=== PATIENT | male | born 1965 | race Caucasian/White ===

== ENCOUNTER → 2023-07-05 11:21 | Outpatient (REF) | payer OTHER, SELFPAY | LOC: HWRAD 11:21 | PROVIDERS: ATTENDING PHYSICIAN Nurse Practitioner Primary Care; FAMILY PHYSICIAN Family Medicine | DX: C19 Malignant neoplasm of rectosigmoid junction (principal); C64.2 Malignant neoplasm of left kidney, except renal pelvis; C78.7 Secondary malignant neoplasm of liver and intrahepatic bile duct | CPT/HCPCS: 71260; 74177; Q9967 ==

== ENCOUNTER → 2023-07-19 12:53 | Outpatient (REF) | payer OTHER, SELFPAY | LOC: HWLAB 12:53 | PROVIDERS: ATTENDING PHYSICIAN Physical Medicine & Rehabilitation Pain Medicine; FAMILY PHYSICIAN Family Medicine; REFERRING PHYSICIAN Surgery | DX: M54.16 Radiculopathy, lumbar region (principal) | CPT/HCPCS: 72110 ==

== ENCOUNTER → 2023-07-21 06:28 | Day surgery (SDC) | payer OTHER, SELFPAY | LOC: GI 06:28 | PROVIDERS: ATTENDING PHYSICIAN Surgery | DX: R10.2 Pelvic and perineal pain (principal); K31.89 Other diseases of stomach and duodenum; Z85.048 Personal history of other malignant neoplasm of rectum, rectosigmoid junction, and anus; K63.89 Other specified diseases of intestine; K57.30 Diverticulosis of large intestine without perforation or abscess without bleeding | CPT/HCPCS: 45330 ==

== ENCOUNTER 2023-07-21 11:51 | Inpatient (IN) | payer OTHER, SELFPAY ==
[2023-07-21] VITALS (10 sets, daily range): BP systolic 129–155; BP diastolic 70–94; BMI 36.3; BMI 35.5
[2023-07-21] MEDS: DILAUDID 1 MG IV ×6 (10:25→22:32)
--- NOTE | 2023-07-21 10:25 | ED.GENMED ---
History of Present Illness
General
Chief Complaint: Abdominal Pain
Source: patient, records, spouse and physician (Colorectal surgery)
Exam Limitations: none
Time Seen by Provider: 07/21/23 10:09
Nursing documentation reviewed up to this point in time: agreed with
Travel History
Have you had any contact with someone who has COVID-19?: No
Do you have any symptoms of coronavirus? Fever > 100 degrees, chills, cough, shortness of breath, sore throat, loss of taste or smell, muscle aches, or headache?: No
History of Present Illness
History of Present Illness:
58-year-old male with past medical history as documented notable for rectal cancer status post resection about 4 years ago on chronic chemotherapy for metastatic disease who presents to the emergency room sent over from [facility] for severe rectal
pain and anastomotic leak. Colorectal surgery called ahead patient was seen in the office and sent over; apparently has had a chronic pelvic anastomotic leak but had been asymptomatic until recently, was having worsening pain and was seen in the
office and had a flexible sigmoidoscopy that showed significant increase in anastomotic leak. Was sent over for admission. Patient says that he has had some gradually increasing pain for the past 3 weeks�initially he was having pain in the right
buttock that was rating down the leg and thought that perhaps it could be from sciatica. Over the past 5 days he says that he has had increasing pain particular in the rectum and groin region which prompted visit to surgeon today and ultimately
referral to the ER. He has been having bowel movements last bowel movement was earlier today and loose. He denies any nausea or vomiting. No fever or chills. Last meal was 8 PM.
Past History
Past History
ED Past Medical History: Cancer
ED Past Surgical History: Bowel resection and Urological
Social History
Tobacco: Non-smoker
Alcohol: Occasional
Personal:
Living: with family
Employment: Employed
Review of Systems
Review of Systems
All Other Systems: ROS reviewed and negative except as documented in HPI and ROS
Constitutional: Denies fever or chills
EENT: Denies sore throat or runny nose
Respiratory: Denies cough or trouble breathing
Cardiac: Denies chest pain or palpitations
ABD/GI: Reports abdominal pain; Denies nausea, vomiting, diarrhea or constipated
: Denies flank pain
Musculoskeletal: Denies neck pain or back pain
Neurological: Denies headache, weakness or numbness
Phy Exam
Physical Exam
Physical Exam:
General: Awake, alert, oriented x3; lying in bed appears very uncomfortable
Head: Normocephalic, atraumatic
Eyes: Conjunctiva normal, sclera anicteric
Throat: Airway intact, handling secretions
Neck: Trachea midline, supple without meningismus
Lungs: Clear to auscultation bilaterally, no wheezing, rales, rhonchi
Heart: Regular rate and rhythm, no murmurs, gallops, or rubs
Abd: Soft, non distended, markedly tender to palpation across the lower abdomen somewhat worse right versus left
Neuro: Cranial nerves grossly intact, speech fluid
Skin: no rash
Extremities: No edema in extremities, equal pulses in all extremities
Scores
Heart Failure Risk
Heart Failure Risk Score: Not Applicable
Heart Score for Chest Pain Patients
STEMI patient?: Not applicable
Withdrawal Assessment of Alcohol
Withdrawal Assessment Completed?: Not applicable
Course
Orders/Labs/Results
Orders:
Orders
07/21/23 10:11
HYDROmorphone [Dilaudid] 1 mg IV NOW STA
Piperacillin/Tazo 3.375 Gram [Zosyn] 3.375 gram in 50 ml IV NOW
07/21/23 10:12
ColoRectal Surgery Consult Urgent
Consulting Provider: Billy Rivera
Was physician already notified: Yes
07/21/23 10:17
Ondansetron Injectable [Zofran] 4 mg IV NOW STA
07/21/23 10:23
Admit/Transfer Patient As Directed
Co-Sign Provider:
Level of Care: Inpatient admission
Assign to:: Medical/Surgical
Physician / Group: Billy Rivera
Diagnosis: anastamotic blowout
Reason for Hospitalization: surgery
Expected length of stay greater than two midnights?: Yes
ELOS- Estimated Length of Stay in days: 7
I certify the patient meets the requirements for IP care: Yes
07/21/23 10:27
Type+Screen Urgent
Complete Blood Count/With Diff Urgent
Lactate Level [Lactic Acid] Urgent
07/21/23 10:28
Comprehensive Metabolic Panel Urgent
PTT Urgent
Prothrombin Time Urgent
Blood Culture Q30M
JOSE FRANCISCO Source: Blood/Venous
Specimen Description:
07/21/23 10:37
Blood Culture Q30M
JOSE FRANCISCO Source: Blood/Venous
Specimen Description:
07/21/23 11:05
HYDROmorphone [Dilaudid] 1 mg IV NOW STA
Abnormal Lab Results
07/21/23 07/21/23
10:27 10:28
WBC 14.9 H 10^3/uL
(4.8-10.8)
RBC 4.55 L 10^6/uL
(4.70-6.10)
RDW 15.6 H %
(11.5-14.5)
Abs Immat Gran (auto) 0.1 H 10^3/uL
(0-0.05)
Absolute Neuts (auto) 12.7 H 10^3/uL
(1.4-6.5)
Absolute Lymphs (auto) 1.1 L 10^3/uL
(1.2-3.4)
Absolute Monos (auto) 1.0 H 10^3/uL
(0.1-0.6)
Neutrophils % 85.0 H %
(42.2-75.2)
Lymphocytes % 7.1 L %
(20.5-51.1)
APTT 37.1 H Sec
(23.4-35.0)
Chloride 97 L mmol/L
(98-107)
BUN 6 L mg/dl
(9-20)
Creatinine 0.5 L mg/dL
(0.7-1.3)
Glucose 132 H mg/dl
(70-99)
Alkaline Phosphatase 166 H U/L
(38-126)
07/21/23 10:27
07/21/23 10:28
Vital Signs
Initial and Last Documented VS:
Initial Vital Signs
Temp Pulse Resp BP Pulse Ox
36.7 C 105 26 135/94 98
07/21/23 09:57 07/21/23 09:57 07/21/23 09:57 07/21/23 09:57 07/21/23 09:57
Last Documented Vital Signs
Temp Pulse Resp BP Pulse Ox
36.7 C 105 26 135/94 98
07/21/23 09:57 07/21/23 09:57 07/21/23 09:57 07/21/23 09:57 07/21/23 09:57
MDM/Problems Addressed
Differential Diagnosis Includes:
Anastomotic leak
MDM/Problems Addressed:
58-year-old male sent over to the ER for admission by colorectal surgery with severe pain from anastomotic leak as above. He arrives to us tachycardic and mildly tachypneic but normotensive, afebrile. Exam as above. IV placed labs sent off
including CBC and CMP, coags, type and screen. Will send lactate and blood cultures. Will cover with IV Zosyn. Will treat pain with Dilaudid. Discussed with colorectal surgery and they will place admission orders for further care and operative
planning.
Labs reviewed: CBC shows leukocytosis to 14.9, CMP no clinically significant abnormalities. Patient still having pain after initial Dilaudid dose we will repeat a dose. Admission orders placed by colorectal.
*Pulse Oximetry
Patient hypoxic: no
*Critical Care Note
Total Time (30-74mins, 75-104mins- exclusive of procedures): Not Applicable
Data Reviewed
Review of Other/Old Records Reveals: Labs and Records
Source: patient, spouse and physician
Patient Management
Discussion with other providers: Truss Builder (Discussed with colorectal surgery)
Escalation/DeEscalation of care consider admission/obs:
Admission indicated
ED Attending Note
-
Portions of this chart may have been created with voice recognition software.� Occasional wrong word or��sound alike� substitutions may have occurred due to the inherent limitations of voice recognition software.
Discharge Plan
Departure
Patient Disposition: Admit
Date of Disposition: 07/21/23
Time of Disposition: 10:13
Admit to doctor: Nicole
Presentation/result/management discussed w/ accepting MD/DO: colorectal surgery
Discharge Problem:
Anastomotic leak of intestine
Prescriptions:
No Action
metoprolol succinate 50 MG tablet extended release 24 hr
50 mg PO DAILY
oxycodone-acetaminophen [Percocet] 5-325 mg tablet
1 tab PO Q6H PRN (Reason: severe pain) Qty: 7 0RF
Patient Comments:
07/21/2023, pt. filled this med. on 07/19/2023 for 28 tablets per PDMP.
Theragen Tablet
1 tab PO DAILY
naproxen sodium [Aleve] 220 mg Tablet
440 mg PO TIDPRN PRN (Reason: mild pain)
ibuprofen [Motrin IB] 200 mg Tablet
400 mg PO TIDPRN PRN (Reason: mild pain)
[2023-07-21] MEDS: ZOFRAN 4 MG IV (10:30)
[2023-07-21 10:41] LABS: % Basophils 0.5 % (0-2); % Eosinophils 0.1 % (0-6); % Immature Granulocytes 0.5 % (0-0.5); % Lymphocytes 7.1 % (20.5-51.1); % Monocytes 6.8 % (1.7-9.3); Absolute Basophils 0.1 10^3/uL (0-0.2); Absolute Immature Granulocytes 0.1 10^3/uL (0-0.05); Absolute Lymphocytes 1.1 10^3/uL (1.2-3.4); Absolute Neutrophils 12.7 10^3/uL (1.4-6.5); Hematocrit 39.3 % (39.0-52.0); Hemoglobin 13.7 g/dL (13.0-18.0); Mean Corp Hgb Conc. 34.9 g/dL (33.0-37.0); Mean Corpuscular Hgb 30.1 pg (27.0-31.0); Mean Corpuscular Volume 86.4 fL (80.0-94.0); Mean Platelet Volume 8.2 fL (7.4-10.4); Nucleated Red Blood Cells % 0 % (-); Platelet Count 224 10^3/uL (130-400); Red Blood Cell Count 4.55 10^6/uL (4.70-6.10); Red Cell Dist. Width 15.6 % (11.5-14.5); White Blood Cell Count 14.9 10^3/uL (4.8-10.8)
[2023-07-21] MEDS: ZOSYN 50 IV ×3 (10:41→22:33)
--- NOTE | 2023-07-21 10:53 | CON.HOSP ---
Addendum entered and electronically signed by Yadira Ferrell MD 07/21/23 12:27:
of note, pt was started with ertapenem by primary service CRS.
cont abx for now
Original Note:
Family Physician
-
Family Physician:
Chief Complaint
-
rectal pain
History of Present Illness
58-year-old male with past medical history Metastatic rectal cancer s/p resection on chronic chemotherapy (outpt oncologist Dr Mcmahan), with chronic stable pelvic anastomotic leak (had been asymptomatic) , Liver mass (secondary to metastatic disease)
s/p resection, Left renal mass status post robotic left partial nephrectomy, who was sent from the CRS office for RLQ abd pain, rectal pain and worsening anastomotic leak.�
He has a chronic pelvic anastomotic leak and has been asymptomatic until recently. 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 The pain is now around the rectum and groin.
He had a flexible sigmoidoscopy in the office that showed significant increase in anastomotic leak.�
He has been having bowel movements, last bowel movement was earlier on DOA.� He denies any nausea or vomiting.� No fever or chills.�
Medical History
Past Medical History
Past Medical History: Reports Other
Additional Past Medical History:
Metastatic rectal cancer s/p resection on chronic chemotherapy (outpt oncologist Dr Mcmahan), with chronic stable pelvic anastomotic leak (had been asymptomatic)
Liver mass (secondary to metastatic disease) s/p resection
Left renal mass status post robotic left partial nephrectomy
Past Surgical History: Reports Other
Additional Past Surgical History:
see Above
Social History
Tobacco: Non-smoker
Alcohol: Occasional
Personal:
Living: With Family
Family History
Family History: Reviewed & Not Pertinent
Allergies / Home Medications
Allergies reflects when Allergies were last updated in [employer].
Home Medications with original date entered in [employer]
Allergy/Medication List:
Allergies
Allergy/AdvReac Type Severity Reaction Status Date / Time
acetaminophen [From Tylenol] Allergy Rash Verified 07/21/23 10:05
aspirin Allergy fever, Verified 07/21/23 10:05
hallucinations
- as a
child
Home Medications
metoprolol succinate 50 mg tablet,extended release 24 hr 50 mg PO DAILY Heart disease/condition 01/21/21
oxycodone-acetaminophen 5 mg-325 mg tablet (Percocet) 1 tab PO Q6H PRN severe pain #7 tabs 07/17/23
ibuprofen 200 mg tablet (Motrin IB) 400 mg PO TIDPRN PRN mild pain 07/21/23
naproxen sodium 220 mg tablet (Aleve) 440 mg PO TIDPRN PRN mild pain 07/21/23
therapeutic multivitamin 1 tab PO DAILY Supplement 07/21/23
Review of Systems
-
Abdomen/GI: Reports See HPI and Abdominal Pain
Physical Exam
Vital Signs
Vital Signs
Temp Pulse Resp BP Pulse Ox
36.7 C 105 26 135/94 98
07/21/23 09:57 07/21/23 09:57 07/21/23 09:57 07/21/23 09:57 07/21/23 09:57
Physical Exam
General: Well Developed, Well Nourished, No Apparent Distress and Comfortable
HEENT: Normocephalic, Moist Mucous Membranes and Atraumatic
Respiratory: Clear and Non Labored Respirations; Negative Accessory Resp Muscle Use
Cardiac: S1/S2 and Regular Rhythm; Negative Murmur or Rub
GI: Soft, Non Distended and Normal Bowel Sounds
Rectal: Deferred by Provider
Musculoskeletal: No Clubbing, No Cyanosis and No Edema
Skin: Negative Rash
Neuro: Awake
Psych: Calm and Intact Judgement
Laboratory Results
-
Laboratory Results
07/21/23 10:27
Data Reviewed
-
Lab Data: Labs Reviewed
Impression / Plan
-
58-year-old male with past medical history Metastatic rectal cancer s/p resection on chronic chemotherapy (outpt oncologist Dr Mcmahan), with chronic stable pelvic anastomotic leak (had been asymptomatic) , Liver mass (secondary to metastatic disease)
s/p resection, Left renal mass status post robotic left partial nephrectomy, who was sent from the CRS office for RLQ abd pain, rectal pain and worsening anastomotic leak.�
He has a chronic pelvic anastomotic leak and has been asymptomatic until recently. 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 The pain is now around the rectum and groin.
He had a flexible sigmoidoscopy in the office that showed significant increase in anastomotic leak.�
He has been having bowel movements, last bowel movement was earlier on DOA.� He denies any nausea or vomiting.� No fever or chills.�
A/P:
# Worsening pelvic anastomotic leak, associated with severe pain
# Metastatic rectal cancer s/p resection on chronic chemotherapy
# Left renal mass status post robotic left partial nephrectomy
# Liver mass (secondary to metastatic disease) s/p resection
CRS to determine surgical plan for pt's anastomotic leak
# Mild leucocytosis could be reactive
Pt afebrile
cont to monitor
DVT ppx: Lovenox SQ
FC
�� � � � � � � � � � � � � � � � � � � � � � � � � � � � � � � � � � � � � � �
[2023-07-21 10:57] LABS: INR 1.14; PT 14.6 Sec (11.4-14.6)
[2023-07-21 10:58] LABS: APTT 37.1 Sec (23.4-35.0)
[2023-07-21 11:02] LABS: ALT (SGPT) 20 U/L (0-50); AST (SGOT) 29 U/L (17-59); Albumin 3.6 g/dl (3.5-5.0); Alkaline Phosphatase 166 U/L (38-126); Blood Urea Nitrogen 6 mg/dl (9-20); Calcium 9.2 mg/dl (8.4-10.2); Carbon Dioxide 28 mmol/L (22-30); Chloride 97 mmol/L (98-107); Glucose 132 mg/dl (70-99); Potassium 3.8 mmol/L (3.5-5.1); Sodium 135 mmol/L (135-145); Total Bilirubin 0.7 mg/dl (0.2-1.3); eGFR > 60.00
--- NOTE | 2023-07-21 11:42 | HPS.HSE ---
Addendum entered and electronically signed by Billy Rivera MD 07/21/23 15:49:
I saw and examined the patient.
The PA's note was reviewed and I agree with the note.
Comment:
Patient seen with PA recently.
History, vitals, labs, recent imaging reviewed. Patient seen and examined.
58-year-old male with a history of low-lying rectal cancer that was treated via neoadjuvant chemoradiation and low anterior resection with loop ileostomy about 4 years ago. The loop was later reversed. He later developed metastatic disease in
particular to the liver and underwent partial hepatectomy. Also has a history of renal cell carcinoma and underwent a left nephrectomy in the past. He has been on chemotherapy for the better part of 4 years for stage IV colon cancer. Recent CEAs
have been much improved. He also has a known contained anastomotic leak in his pelvis which was first described radiographically maybe 2 years ago. It has seemed stable on imaging, the most recent CT being towards the end of last month. However,
a few weeks back he started having pelvic/right buttock pain intermittently rating to his right knee which is worsened and is becoming somewhat debilitating. Denies fevers, chills, nausea, or vomiting. Denies changes in bowel habits although his
bowels typically are quite erratic. When I saw him in the office recently I recommended evaluation by the back specialist. He did see a local group and plain films of his lower back apparently showed degenerative changes. I also recommended a
flexible sigmoidoscopy by me to better evaluate the anastomosis. Today I performed flexible sigmoidoscopy and the before the procedure he was noted to be in excruciating pain. Is also been on antibiotics under Dr. Chatterjee his medical oncologist for
the presumed contained leak. On flexible sigmoidoscopy a sizable anastomotic defect was noted posteriorly with visualization of what I think is the tissue overlying the sacrum. On VICKY under anesthesia I could palpate the sacral bone. Of note his
last endoscopic evaluation of the anastomosis in [address] Blair showed an intact anastomosis. The patient was writhing in pain postprocedure today and (as before). Based on the flexible sigmoidoscopy and his history I believe his contained
perforation is worsening and is the source of his severe pain. Options were discussed with the patient and I recommended admission via the ER and likely OR tomorrow to address the leak. I anticipate an open APR versus redo LAR with coloanal and
possible diverting loop ileostomy. Risks and benefits of such operation were discussed in detail. Risk described included but not limited to bleeding, infection, changes of bowel control/fecal incontinence, stricture formation, hernia formation,
nerve injury, ureteral injury, bowel or solid organ injury, progression of his cancer due to having to be off chemo, potential for ongoing pain despite my efforts, and anesthetic risk. I emphasized to the patient that there is a good chance that he
wakes up with a permanent stoma. The patient understands and agrees to proceed. All questions answered. In the meantime we will proceed with bowel prep and IV antibiotics and obtain clearance by the hospitalist service.
Original Note:
Family Physician
-
Family Physician: Nicole Liriano
Chief Complaint
-
sacral pain
History of Present Illness
58 yo male with a history of rectal cancer s/p resection by Dr. Rivera after chemoradiation. He later had a partial hepatectomy for metastatic disease. He has essentially been on chronic chemotherapy for metastatic disease. He also has a known
chronic pelvic anastomotic leak which has essentially been asymptomatic. However recently his oncologist, Dr. Chatterjee, relayed to me that he has been having acute pain of the pelvic/buttock area for which Dr. Chatterjee placed him on a course of Levaquin
and probiotic for 10 days which the patient is currently on. Dr. Chatterjee asked me to see him for further recommendations. Patient himself admits that the pain is mainly a right buttock pain which also intermittently radiates to the right knee. It
started on 06/30/2023. He also has intermittent diarrhea which is an issue that may or may not be related to the chemotherapy which he is on.
�������Of note he did undergo a CT scan recently on 07/05/2023 which was a few days after the pain started for surveillance purposes. This revealed upper abdominal lymph nodes with 'some improvement '. Noted is a stable chronic presacral
collection/leak 'at the level of the rectosigmoid anastomosis'. Given the continuous pain, a flex sig was performed by Dr. Rivera today on 07/21/2023. Found was essentially an anastomotic disruption. He was admitted from the GI [facility] for further
workup given this finding.
Medical History
Past Medical History
Past Medical History: Reports Cancer (rectal cancer, left renal cell cancer) and Other (Legionnaires disease)
Past Surgical History: Reports Bowel Resection (LAR with ileostomy 05/2019 - Dr. Rivera), Urological (kidney surgery 2019, liver surgery 2019) and Other ( Testicular surgery age 8)
Social History
Tobacco: Non-smoker
Family History
Family History: Cancer (mother - colon cancer)
Allergies / Home Medications
Allergies reflects when Allergies were last updated in [employer].
Home Medications with original date entered in [employer]
Allergy/Medication List:
Allergies:
Acetaminophen- rash
Aspirin - fever/hallucinations
Meidcations:
Ibuprofen 400mg PO TID PRN
Metoprolol succinate 50mg PO Daily
Alevel 440mg po TID PRN
Review of Systems
-
A 12 point ROS was completed and negative except as noted: Yes
Musculoskeletal: Reports Other (sacral pain, lower pelvic pain, radiating to the right knee)
Physical Exam
Vital Signs
Vital Signs
Temp Pulse Resp BP Pulse Ox
98.0 F 94 18 130/89 94
07/21/23 09:57 07/21/23 11:15 07/21/23 11:15 07/21/23 11:00 07/21/23 11:00
Physical Exam
General: Well Developed, Well Nourished and Pain
GI: Soft, Non Tender and Non Distended
Skin: Warm and Dry
Neuro: AO x 3
Laboratory Results
-
07/21/23 10:27
03/13/24 10:28
Laboratory Results
PT 14.6 Sec (11.4-14.6) 07/21/23 10:28
INR 1.14 07/21/23 10:28
APTT 37.1 Sec (23.4-35.0) H 07/21/23 10:28
Lactic Acid 2.0 mmol/L (0.7-2.0) 07/21/23 10:
Total Bilirubin 0.7 mg/dl (0.2-1.3) 07/21/23 10:28
AST 29 U/L (17-59) 07/21/23 10:
ALT 20 U/L (0-50) 07/21/23 10:28
Alkaline Phosphatase 166 U/L (38-126) H 07/21/23 10:28
Impression/Plan
-
IMPRESSION: 58-year-old male with a history of rectal cancer status post resection about 4 years ago on chemotherapy [facility] after a flexible sigmoidoscopy was performed due to pain that showed anastomotic disruption
PLAN: Will admit. Patient is to remain NPO. Will anticipate 4 OR tomorrow for an open APR versus redo/coloanal with ileostomy. Bowel prep today. Will consult hospitalist for medical management. Pain medication and Zofran ordered. IV Zosyn.
Will consult urology due to need for urologic stents prior to OR.
--- NOTE | 2023-07-21 12:42 | EDRN ---
POX 85% so pt placed on oxygen at 2lpm, Pain now 4/10 per pt.n WOC RN in room marking pt for a stoma at this time.
[2023-07-21] MEDS: NULYTELY SOLUTION 4 LITERS PO (12:51)
[2023-07-21] MEDS: NSS 1000 IV ×2 (13:00→22:30)
[2023-07-21] MEDS: FLAGYL 1000 MG PO ×3 (14:25→23:44)
[2023-07-21] MEDS: NEOMYCIN 1000 MG PO ×3 (14:25→23:44)
--- NOTE | 2023-07-21 14:36 | EDRN ---
Called for teds and sequential stockings and machine. Pt is continuously back and forth to [facility] at this time due to [place].
--- NOTE | 2023-07-21 14:45 | EDRN ---
orders processed at this time.
--- NOTE | 2023-07-21 15:50 | WOUNDNOTE ---
[facility] RN NOTE: Patient visited for stoma siting bilaterally. Procedure explained to patient, who is familiar with ostomies as he had an ileostomy about 4 years ago. Patient was assessed sitting and laying positions (unable to stand due to pain). The
rectus abdominal muscle was located and care was taken to avoid creases and scars, especially RUQ scar from past ileostomy. Patient made aware the surgeon will make final decision about ostomy placement. All questions answered. Will continue to
follow as needed after surgery. RN given update. TT Migdalia Sanchez with update.
--- NOTE | 2023-07-21 16:37 | PTCARENOTE ---
Received patient from ED via stretcher. AAOx3, ambulated to bed with minimal assistance. at bedside. Assessed and oriented to room. Ordered NPO except meds. Call bryan in close reach.
[2023-07-22] VITALS (23 sets, daily range): BP systolic 68–210; BP diastolic 37–83
[2023-07-22] MEDS: ZOSYN 50 IV ×3 (03:46→22:18)
[2023-07-22] MEDS: DILAUDID 1 MG IV ×3 (03:56→10:54)
[2023-07-22 07:07] LABS: % Basophils 0.5 % (0-2); % Eosinophils 0.3 % (0-6); % Immature Granulocytes 0.7 % (0-0.5); % Lymphocytes 8.4 % (20.5-51.1); % Monocytes 10.2 % (1.7-9.3); % Neutrophils 79.9 % (42.2-75.2); Absolute Basophils 0.1 10^3/uL (0-0.2); Absolute Immature Granulocytes 0.1 10^3/uL (0-0.05); Absolute Lymphocytes 1.1 10^3/uL (1.2-3.4); Absolute Monocytes 1.3 10^3/uL (0.1-0.6); Absolute Neutrophils 10.2 10^3/uL (1.4-6.5); Hematocrit 36.1 % (39.0-52.0); Hemoglobin 12.1 g/dL (13.0-18.0); Mean Corp Hgb Conc. 33.5 g/dL (33.0-37.0); Mean Corpuscular Hgb 30.1 pg (27.0-31.0); Mean Corpuscular Volume 89.8 fL (80.0-94.0); Mean Platelet Volume 8.6 fL (7.4-10.4); Nucleated Red Blood Cells % 0 % (-); Platelet Count 200 10^3/uL (130-400); Red Blood Cell Count 4.02 10^6/uL (4.70-6.10); Red Cell Dist. Width 15.9 % (11.5-14.5); White Blood Cell Count 12.8 10^3/uL (4.8-10.8)
[2023-07-22 07:11] LABS: Blood Urea Nitrogen 7 mg/dl (9-20); Calcium 8.5 mg/dl (8.4-10.2); Carbon Dioxide 28 mmol/L (22-30); Chloride 98 mmol/L (98-107); Estimated Creatinine Clearance > 125 ml/min; Glucose 118 mg/dl (70-99); Potassium 3.4 mmol/L (3.5-5.1); Sodium 136 mmol/L (135-145); eGFR > 60.00
--- NOTE | 2023-07-22 07:33 | PTCARENOTE ---
Pt aaox3 able to make his needs known. On prn pain meds as needed. Pt NPO for OR, preop wipes completed.Pt refuses for SCD's,BETTINA prefers to put them on later. Call bryan in reach.
[2023-07-22] MEDS: NSS 1000 IV ×2 (10:24→21:00)
[2023-07-22] MEDS: NEURONTIN 600 MG PO (11:42)
[2023-07-22] MEDS: HEPARIN 5000 UNITS SC (11:42)
--- NOTE | 2023-07-22 12:00 | W.PN.HOSP.TC ---
Today's Communication/Plan
-
OR
heme consult
Assessment / Plan
Assessment / Plan
pt is a 58 year old male
Worsening pelvic anastomotic leak, associated with severe pain--for surgery with CRS today--cont zosyn as per CRS
Metastatic rectal cancer s/p resection on chronic chemotherapy--consult heme
Left renal mass status post robotic left partial nephrectomy
Liver mass (secondary to metastatic disease) s/p resection
Mild leucocytosis could be reactive--NOT neutropenic
DVT ppx: Lovenox SQ
code status -- full code
Anticipated Discharge: > 48 hours
Subjective/Interval History
-
Date of Service: July 22, 2023
pt going to OR soon
Objective Data
-
Labs:
Laboratory Results
07/22/23
06:17
WBC 12.8 H
Hgb 12.1 L
Hct 36.1 L
Plt Count 200
Sodium 136
Potassium 3.4 L
Chloride 98
Carbon Dioxide 28
BUN 7 L
Creatinine 0.5 L
Glucose 118 H
Calcium 8.5
Vital Signs:
max temp for 24 hours
07/21/23
15:52
Temp 99.4 F
Vital Signs
Temp Pulse Resp BP Pulse Ox
98.7 F 67 16 133/66 97
07/22/23 07:45 07/22/23 07:45 07/22/23 07:45 07/22/23 07:45 07/22/23 08:10
I&O
07/21/23 07/22/23 07/23/23
06:59 06:59 06:59
Intake Total 1000 / 1000
Balance 1000 / 1000
Review of Systems
-
All other systems: Reviewed and negative
Abdomen/GI: Reports Abdominal Pain
Physical Exam
-
General: Well Developed, Well Nourished and Appears in Distress
HEENT: Normocephalic and Atraumatic
Respiratory: Clear to Auscultation; Negative Wheezes or Rhonchi
Cardiac: Regular Rhythm and S1/S2; Negative Murmur
GI: Soft, Nontender and Nondistended; Negative Normal Bowel Sounds (no bowel sounds)
Musculoskeletal: No Clubbing, No Cyanosis and No Edema
Skin: Warm
Neuro: Awake
--- NOTE | 2023-07-22 13:54 | W.IMMPOSTOP ---
Surgical Immed Post Op Note
-
Primary Surgeon: Eddie
Pre-op Diagnosis: Metastatic rectal cancer with chronic anastamotic leak, intraop identification of ureters for APR
Post-op Diagnosis: Same
Procedure Performed: cysto, bilateral ureteral stent placement
Anesthesia Type: GETA
Specimen / Cultures: None/None
Estimated Blood Loss: Negligible
Drains: bilateral 5Fr open-ended ureteral catheters, 16Fr Luna catheter
Complications: None
Operative Findings: excellent urine efflux from drains x3
[2023-07-22] MEDS: ZOSYN IV (14:54)
--- NOTE | 2023-07-22 19:07 | W.IMMPOSTOP ---
Surgical Immed Post Op Note
-
Primary Surgeon: Ryland Rivera MD
Assisting Surgeon: Vincent Goodwin MD; COLLEEN Meza
Pre-op Diagnosis: 1) chronic worsening anastomotic leak 2) pelvic/R buttock pain 3) history rectal cancer
Post-op Diagnosis: same
Procedure Performed: 1) exploratory laparotomy 2) abdominoperineal resection (APR)
Anesthesia Type: general plus local
Specimen / Cultures: 1) anus 2) portion of old anastomosis 3) portion of sigmoid
Estimated Blood Loss: 500 cc
Complications: no immediate
Operative Findings: dense pelvic adhesions with posterior disruption of old pelvic anastomosis
#19 Popeye in pelvis.
Luna and stents by Dr. Morgan of urology. R stent removed at end of case.
Sending to IMU for postop care.
Continuing antibiotics.
Patient's updated in waiting area.
[2023-07-22 19:58] LABS: % Basophils 0.4 % (0-2); % Immature Granulocytes 1.4 % (0-0.5); % Lymphocytes 4.3 % (20.5-51.1); % Monocytes 5.2 % (1.7-9.3); % Neutrophils 88.7 % (42.2-75.2); Absolute Basophils 0.2 10^3/uL (0-0.2); Absolute Immature Granulocytes 0.7 10^3/uL (0-0.05); Absolute Lymphocytes 2.2 10^3/uL (1.2-3.4); Absolute Monocytes 2.6 10^3/uL (0.1-0.6); Absolute Neutrophils 43.9 10^3/uL (1.4-6.5); Hematocrit 38.2 % (39.0-52.0); Hemoglobin 12.8 g/dL (13.0-18.0); Mean Corp Hgb Conc. 33.5 g/dL (33.0-37.0); Mean Corpuscular Volume 89.7 fL (80.0-94.0); Mean Platelet Volume 8.3 fL (7.4-10.4); Nucleated Red Blood Cells % 0 % (-); Platelet Count 378 10^3/uL (130-400); Red Blood Cell Count 4.26 10^6/uL (4.70-6.10)
[2023-07-22] MEDS: DILAUDID 0.5 MG IV ×3 (19:58→20:57)
[2023-07-22 20:00] LABS: White Blood Cell Count 49.5 10^3/uL (4.8-10.8)
[2023-07-22 20:13] LABS: Blood Urea Nitrogen 7 mg/dl (9-20); Calcium 7.5 mg/dl (8.4-10.2); Carbon Dioxide 20 mmol/L (22-30); Chloride 101 mmol/L (98-107); Estimated Creatinine Clearance > 125 ml/min; Glucose 147 mg/dl (70-99); Magnesium 1.9 mg/dl (1.6-2.3); Potassium 3.9 mmol/L (3.5-5.1); Sodium 131 mmol/L (135-145); eGFR > 60.00
[2023-07-22] MEDS: ZOFRAN 4 MG IV (20:36)
[2023-07-22] MEDS: TORADOL 10 MG IV (20:42)
--- NOTE | 2023-07-22 21:47 | PTCARENOTE ---
Patient arrived to room 3353, oriented to room and use of call bryan. Reports 8/10 pain to Abd pain. Midline dressing intact. CHI emptied for 20mL bloody fluid. Luna draining bloody urine, no clots. Colostomy with small amount of bloody fluid. Rectum
with small amount of bloody gauze in place with mesh panties. at bedside, call bryan within reach.
[2023-07-22] MEDS: FLOMAX 0.400000000000000022 MG PO (22:17)
[2023-07-23] VITALS (25 sets, daily range): BP systolic 96–133; BP diastolic 66–98; BMI 35.5
[2023-07-23] MEDS: DILAUDID 0.5 MG IV (00:28)
[2023-07-23] MEDS: TORADOL 10 MG IV ×4 (02:59→20:09)
[2023-07-23] MEDS: DILAUDID 1 MG IV ×3 (03:46→10:22)
[2023-07-23] MEDS: ZOSYN 50 IV ×4 (04:09→21:59)
--- NOTE | 2023-07-23 04:16 | PTCARENOTE ---
Pt reported generalized abd pressure/pain that has been slowly increasing. Abd is soft, non tender; assessment unchanged from earlier. It was noted the garza catheter stopped draining bloody urine with sediment at catheter insertion site. On-call
providers Dr. Ibrahim and Dr. Breen made aware. Orders received to irrigate garza. Dilaudid administered. Garza irrigated with sterile solution, small sediment but no blood clots present. Upon further investigation, catheter was found twisted and
kinked underneath tape/mesh panties. Garza was un-kinked and urine started to drain. 300mL bloody urine emptied. Pt reports slight relief. CHI drain has been emptied 20-30mL each hour so far. Vitals are stable. Reports pain decreased from 01/17 to
11/16. Call bryan within reach.
[2023-07-23 04:20] LABS: % Basophils 0.2 % (0-2); % Immature Granulocytes 0.8 % (0-0.5); % Lymphocytes 2.8 % (20.5-51.1); % Monocytes 3.7 % (1.7-9.3); % Neutrophils 92.5 % (42.2-75.2); Absolute Basophils 0.1 10^3/uL (0-0.2); Absolute Immature Granulocytes 0.2 10^3/uL (0-0.05); Absolute Lymphocytes 0.9 10^3/uL (1.2-3.4); Absolute Monocytes 1.1 10^3/uL (0.1-0.6); Absolute Neutrophils 28.3 10^3/uL (1.4-6.5); Hematocrit 35.2 % (39.0-52.0); Hemoglobin 11.6 g/dL (13.0-18.0); Mean Corpuscular Hgb 29.9 pg (27.0-31.0); Mean Corpuscular Volume 90.7 fL (80.0-94.0); Mean Platelet Volume 8.4 fL (7.4-10.4); Nucleated Red Blood Cells % 0 % (-); Platelet Count 245 10^3/uL (130-400); Red Blood Cell Count 3.88 10^6/uL (4.70-6.10); Red Cell Dist. Width 15.9 % (11.5-14.5); White Blood Cell Count 30.6 10^3/uL (4.8-10.8)
[2023-07-23 04:55] LABS: ALT (SGPT) 19 U/L (0-50); AST (SGOT) 39 U/L (17-59); Albumin 2.5 g/dl (3.5-5.0); Alkaline Phosphatase 96 U/L (38-126); Blood Urea Nitrogen 11 mg/dl (9-20); Calcium 7.4 mg/dl (8.4-10.2); Carbon Dioxide 26 mmol/L (22-30); Chloride 101 mmol/L (98-107); Estimated Creatinine Clearance > 125 ml/min; Glucose 160 mg/dl (70-99); Potassium 4.3 mmol/L (3.5-5.1); Sodium 135 mmol/L (135-145); Total Bilirubin 0.6 mg/dl (0.2-1.3); Total Protein 5.2 g/dl (6.3-8.2); eGFR > 60.00
[2023-07-23] MEDS: NSS 1000 IV ×2 (06:47→16:50)
[2023-07-23] MEDS: PROTONIX IV 40 MG IV (08:09)
[2023-07-23] MEDS: NSS (PRESERVATIVE FREE) 10 ML IV (08:09)
--- NOTE | 2023-07-23 09:07 | W.PN.HOSP.TC ---
Today's Communication/Plan
-
see A/P
Assessment / Plan
Assessment / Plan
pt is a 58 year old male
Worsening pelvic anastomotic leak, associated with severe pain-- s/p surgery 07/21 for exploratory laparotomy and abdominoperineal resection by CRS-- post op care per CRS, Cont NPO with IVF, cont zosyn per CRS
Likely reactive leucocytosis post surgery, pt already on Abx, monitor WBC
Metastatic rectal cancer s/p resection on chronic chemotherapy--consult heme
Liver mass (secondary to metastatic disease) s/p resection
Left renal mass status post robotic left partial nephrectomy
DVT ppx: Lovenox SQ
code status -- full code
DW at bedside
Anticipated Discharge: > 48 hours
Subjective/Interval History
-
Date of Service: July 23, 2023
Objective Data
-
Labs:
Laboratory Results
07/23/23
04:06
WBC 30.6 H
Hgb 11.6 L
Hct 35.2 L
Plt Count 245 D
Sodium 135
Potassium 4.3
Chloride 101
Carbon Dioxide 26
BUN 11
Creatinine 0.8
Glucose 160 H
Calcium 7.4 L
Total Bilirubin 0.6
AST 39
ALT 19
Alkaline Phosphatase 96
Vital Signs:
Vital Signs
Temp Pulse Resp BP Pulse Ox
36.4 C 103 13 116/82 96
07/23/23 03:36 07/23/23 09:00 07/23/23 09:00 07/23/23 09:00 07/23/23 09:00
I&O
07/22/23 07/23/23 07/24/23
06:59 06:59 06:59
Intake Total 1000 / 1000 2570 / 2570
Output Total 1100 / 1100
Balance 1000 / 1000 1470 / 1470
Review of Systems
-
All other systems: Reviewed and negative
Physical Exam
-
General: Well Developed, Well Nourished, Comfortable, Appears in Distress and Obese
HEENT: Normocephalic and Atraumatic
Respiratory: Clear to Auscultation and Non Labored Respirations; Negative Accessory Resp Muscle Use
Cardiac: Regular Rhythm and S1/S2; Negative Murmur
GI: Soft, Nondistended and Ostomy
Musculoskeletal: No Clubbing and No Cyanosis
Skin: Warm
Neuro: Awake
Psych: Calm and Intact Judgement/Insight
Data Reviewed
-
Labs: Labs Reviewed by me
--- NOTE | 2023-07-23 10:37 | PTCARENOTE ---
Assumed care of patient this morning. Pt reports pain 7-10/10 throughout abdomen. Reports Dilaudid pain medication not helping. was at the bedside and addressed pain. Abdomen with midline Aquacel dressing, shadowing present and outlined.
Left colostomy, RLQ CHI both intact and with sanguineous drainage. Pt's Luna intact also with sanguineous drainage, output 250 mls this morning. removed remaining stent at bedside this morning. Received on 2L NC, trial off. He is 93% on
RA. He remains in ST, HR 100-120s. BP stable. Assessment, care and VS as charted.
--- NOTE | 2023-07-23 11:10 | W.PN.CRS1 ---
Addendum entered and electronically signed by Billy Rivera MD 07/23/23 17:15:
Of note, will also continue empiric Zosyn.
Addendum entered and electronically signed by Billy Rivera MD 07/23/23 16:21:
I saw and examined the patient.
The PA's note was reviewed and I agree with the note.
Comment:
Seen in a.m. with PA.
Significant postoperative discomfort. Awake and appropriate.
Afebrile. Mildly tachycardic but normotensive. White count fairly high at 30 which is down from 49. Will trend.
Urine output reasonable. Continue Garza for now especially given pelvic dissection. Remaining stent removed.
Abdomen mildly distended. Midline dressing dry. Left-sided colostomy viable without output.
Given mild tachycardia and significant blood loss, hemoglobin rechecked later in the day. Came back at 10.8.
Changed to SECURITY INCIDENT RESPONSE SPECIALIST for better pain control. Continue low-dose Toradol. No acetaminophen given allergy.
Sips and chips okay.
Hold on Lovenox for now. Continue teds and SCDs.
Continue IMU care. Appreciate hospitalist help.
Original Note:
Today's Communication / Plan
-
hgb recheck
dilaudid data processor
remain npo
zosyn
Assessment/Plan
-
POD#1 1) exploratory laparotomy 2) abdominoperineal resection (APR), 3) ileostomy
1. WBC 306 from 49.5, continue IV antibiotics. Trend. Vitals normal.
2. On Toradol 10mg q6 IV, Dilaudid IV PRN. Will add Dilaudid SECURITY INCIDENT RESPONSE SPECIALIST given amount of pain.
3. Stent #2 removed at bedside. Continue agrza for now.
4. OOB with PT.
5. NPO with meds, sips and chips
6. Recheck hgb given amount of bleeding in OR yesterday.
7. OR pathology pending.
8. Continue IV Zosyn.
9. Wound RN for ileostomy teaching.
Subjective Data
Procedure
07/22/2023- 1) exploratory laparotomy 2) abdominoperineal resection (APR), 3) ileostomy
Subjective Data
Date of Service: July 23, 2023
Patient states he is in pain. He has no other complaints. He has no ileostomy function yet.
Objective Data
-
Vital Signs
Temp Pulse Resp BP Pulse Ox
97.7 F 103 26 122/79 92
07/23/23 07:07 07/23/23 09:00 07/23/23 10:00 07/23/23 10:00 07/23/23 10:31
Intake & Output
07/22/23 07/23/23 07/24/23
06:59 06:59 06:59
Intake Total 1000 / 1000 2570 / 2570 50 / 50
Output Total 1100 / 1100 290 / 290
Balance 1000 / 1000 1470 / 1470 -240 / -240
Intake:
Oral fluids 0 / 0
IV fluids (Total) 1000 / 1000 2420 / 2420
Normosal 700 / 700
IV piggybacks 150 / 150 50 / 50
Output:
Drain Output (Total) 475 / 475 40 / 40
Right Abdomen Ashish-Powell 475 / 475 40 / 40
Urine, Garza 575 / 575 250 / 250
True urine output from hand 50 / 50
irrigation
Other:
Number of approximated MODERATE 4
amounts of urine
Number of approximated LARGE 2
amounts of urine
Lab Results
07/23/23 04:06
07/23/23 04:06
Physical Exam
-
General: No Acute Distress and AOx3
Abdomen: Soft, Non Distended, Tender (lower abdominal, throughout) and Other (ileostomy warm and pink, drain serosanginous)
Wound: Dressing in Place and Other
--- NOTE | 2023-07-23 11:14 | CM ---
Patient seen at bedside. Patient s/p surgery, states he lives with his in a one story home with no DME. 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 Patient
states that he has no steps to enter home and does not anticipate any discharge needs. PCP Dr. Liriano and he uses the [facility] in [facility]. Patient plan is home with spouse, pending pt/ot assessment. Per nursing patient for GUN MECHANIC pump today
for pain management. CM will continue to follow for discharge planning needs.
Plan; home with VN vs home with no needs. Patient would benefit from PT/OT assessment to confirm level of care need at discharge.
[2023-07-23] MEDS: DILAUDID PCA 30 IV (12:01)
[2023-07-23 12:52] LABS: Hematocrit 32.3 % (39.0-52.0); Hemoglobin 10.8 g/dL (13.0-18.0)
--- NOTE | 2023-07-23 12:55 | PTCARENOTE ---
H&H sent. Dilaudid LABORATORY DIRECTOR setup for patient. Patient reports pain 7/10. RN educated patient about pain pump and restrictions, including only patient allowed to press administration button, he verbalized understanding and demonstrated use of push
button. Pt awake and alert, vital signs stable and flowsheet maintained per vital sign order.
--- NOTE | 2023-07-23 17:02 | PTCARENOTE ---
Patient c/o of fullness to his lower abdomen. Pt concerned Luna catheter is blocked again. Collection bag emptied for 250 mls. Advised patient can irrigate Luna catheter if concern for blockage despite Luna catheter appearing to be draining. Hand
irrigation performed and patient tolerated with minimal pain increase, Luna catheter draining following irrigation. Bladder scan performed which resulted in no urine in bladder. CHI full and emptied for 55 mls. Colostomy emptied for 20mls of
sanguinous drainage. Abdomen, soft and tender to touch. Vital signs stable. INDUSTRIAL MACHINE OPERATOR button in hand of patient.
[2023-07-23] MEDS: FLOMAX 0.400000000000000022 MG PO (21:59)
[2023-07-24] VITALS (14 sets, daily range): BP systolic 116–141; BP diastolic 69–85; PULSE 101; O2SAT 95; BMI 35.7
[2023-07-24] MEDS: TORADOL 10 MG IV ×2 (02:54→07:49)
[2023-07-24] MEDS: NSS 1000 IV ×3 (02:54→21:36)
[2023-07-24] MEDS: ZOSYN 50 IV ×4 (04:24→21:36)
[2023-07-24 04:58] LABS: % Basophils 0.3 % (0-2); % Eosinophils 0.3 % (0-6); % Immature Granulocytes 1.1 % (0-0.5); % Lymphocytes 6.9 % (20.5-51.1); % Monocytes 8.1 % (1.7-9.3); % Neutrophils 83.3 % (42.2-75.2); Absolute Basophils 0.1 10^3/uL (0-0.2); Absolute Eosinophils 0.1 10^3/uL (0-0.7); Absolute Immature Granulocytes 0.2 10^3/uL (0-0.05); Absolute Lymphocytes 1.2 10^3/uL (1.2-3.4); Absolute Monocytes 1.4 10^3/uL (0.1-0.6); Absolute Neutrophils 13.9 10^3/uL (1.4-6.5); Hematocrit 28.5 % (39.0-52.0); Hemoglobin 9.2 g/dL (13.0-18.0); Mean Corp Hgb Conc. 32.3 g/dL (33.0-37.0); Mean Corpuscular Hgb 29.8 pg (27.0-31.0); Mean Corpuscular Volume 92.2 fL (80.0-94.0); Mean Platelet Volume 8.5 fL (7.4-10.4); Nucleated Red Blood Cells % 0 % (-); Platelet Count 214 10^3/uL (130-400); Red Blood Cell Count 3.09 10^6/uL (4.70-6.10); Red Cell Dist. Width 15.9 % (11.5-14.5); White Blood Cell Count 16.7 10^3/uL (4.8-10.8)
[2023-07-24 05:17] LABS: Blood Urea Nitrogen 17 mg/dl (9-20); Calcium 7.3 mg/dl (8.4-10.2); Carbon Dioxide 26 mmol/L (22-30); Chloride 105 mmol/L (98-107); Estimated Creatinine Clearance > 125 ml/min; Glucose 114 mg/dl (70-99); Potassium 4.1 mmol/L (3.5-5.1); Sodium 135 mmol/L (135-145); eGFR > 60.00
[2023-07-24] MEDS: PROTONIX IV 40 MG IV (07:49)
[2023-07-24] MEDS: NSS (PRESERVATIVE FREE) 10 ML IV (07:49)
--- NOTE | 2023-07-24 09:34 | W.PN.HOSP.TC ---
Today's Communication/Plan
-
surgical care as per CRS
will restart Toprol XL with holding parameters
Assessment / Plan
Assessment / Plan
pt is a 58 year old male
Worsening pelvic anastomotic leak, associated with severe pain-- s/p surgery 07/21 for exploratory laparotomy and abdominoperineal resection by CRS-- post op care per CRS, Cont NPO with IVF, cont zosyn per CRS
Likely reactive leucocytosis post surgery, pt already on Abx, monitor WBC
Metastatic rectal cancer s/p resection on chronic chemotherapy--consult heme
Liver mass (secondary to metastatic disease) s/p resection
Left renal mass status post robotic left partial nephrectomy
essential HTN--pt on toprol XL FREIGHT WEIGHER--will restart with holding parameters as pt can have sips of water and ice
DVT ppx: Lovenox SQ
code status -- full code
Anticipated Discharge: > 48 hours
Subjective/Interval History
-
Date of Service: July 24, 2023
pt still c/o abdominal pain and pressure
Objective Data
-
Labs:
Laboratory Results
07/24/23
04:32
WBC 16.7 H
Hgb 9.2 L
Hct 28.5 L
Plt Count 214
Sodium 135
Potassium 4.1
Chloride 105
Carbon Dioxide 26
BUN 17
Creatinine 0.6 L
Glucose 114 H
Calcium 7.3 L
Vital Signs:
max temp for 24 hours
07/24/23
03:40
Temp 98.5 F
Vital Signs
Temp Pulse Resp BP Pulse Ox
98.5 F 86 17 129/78 96
07/24/23 03:40 07/24/23 08:00 07/24/23 08:00 07/24/23 08:00 07/24/23 08:36
I&O
07/23/23 07/24/23 07/25/23
06:59 06:59 06:59
Intake Total 2570 / 2570 2600 / 2600
Output Total 1100 / 1100 1145 / 1145
Balance 1470 / 1470 1455 / 1455
Review of Systems
-
All other systems: Reviewed and negative
Physical Exam
-
General: Well Developed, Well Nourished and No Apparent Distress
HEENT: Normocephalic and Atraumatic
Respiratory: Clear to Auscultation; Negative Wheezes, Rales, Rhonchi or Crackles
Cardiac: Regular Rhythm, S1/S2 and Tachycardic; Negative Murmur
GI: Soft, Tender (with palpation), Distended, Ostomy (with minimal blood) and Other (CHI drain right abdomen); Negative Normal Bowel Sounds (hypoactive)
Musculoskeletal: No Clubbing, No Cyanosis and No Edema
Skin: Warm
Neuro: Awake
Psych: Calm
--- NOTE | 2023-07-24 12:01 | W.PN.CRS1 ---
Today's Communication / Plan
-
Sips of clears
Continue MANIFEST/ORDER ORGANIZER PRINT ORDERS
Assessment/Plan
-
58 yo male with h/o metastatic rectal cancer (following with Dr. Chatterjee for chemotherapy) with prior low anterior resection with loop ileostomy creation about 4 years ago and subsequent reversal later that year with chronic anastomotic leak over the
past 2 years previously stable but with recent worsening now POD #2 ex lap with APR and ileostomy creation
AFVSS but with some intermittent tachycardia
Following for bowel recovery,now with flatus via stoma
Pain managed well with MANIFEST/ORDER ORGANIZER PRINT ORDERS
Significant leukocytosis on presentation now trending down
Mild acute blood loss anemia noted secondary to intraoperative losses and mild hematuria (secondary to instrumentation) with hemodilutional component as well
--Sips of clears only until more robust return of bowel function
--Continue Dilaudid MANIFEST/ORDER ORGANIZER PRINT ORDERS with Ofirmev. Hold NSAIDs given drift in h/h
--Continue garza, stents out
--OOB with PT.
--IVF while NPO
--Trend labs
--OR pathology pending.
--Continue IV Zosyn.
--Wound RN for ileostomy teaching
--OOB as tolerated, PT consulted
--Continue to hold chemical vte ppx given drift in h/h. SCDs while in bed
Medical management as per hospitalist team
Subjective Data
Procedure
07/22/2023- 1) exploratory laparotomy 2) abdominoperineal resection (APR), 3) ileostomy
Subjective Data
Date of Service: July 24, 2023
Patient seen and examined at bedside with Dr. Rivera. Notes he still feels stiff/having difficulty moving around but this is improving. Pain well managed with MANIFEST/ORDER ORGANIZER PRINT ORDERS. Denies nausea but does have some belching with PO intake. Has heard some flatus via
stoma.
Objective Data
-
Vital Signs
Temp Pulse Resp BP Pulse Ox
97.6 F 109 21 129/74 93
07/24/23 07:35 07/24/23 11:00 07/24/23 11:00 07/24/23 10:00 07/24/23 09:00
Intake & Output
07/23/23 07/24/23 07/25/23
06:59 06:59 06:59
Intake Total 2570 / 2570 2600 / 2600
Output Total 1100 / 1100 1145 / 1145
Balance 1470 / 1470 1455 / 1455
Intake:
IV fluids (Total) 2420 / 2420 2400 / 2400
Normosal 700 / 700
IV piggybacks 150 / 150 200 / 200
Output:
Drain Output (Total) 475 / 475 195 / 195
Right Abdomen Ashish-Powell 475 / 475 195 / 195
Urine, Garza 575 / 575 950 / 950
True urine output from hand 50 / 50
irrigation
Other:
Number of approximated LARGE 2
amounts of urine
Lab Results
07/24/23 04:32
07/24/23 04:32
Physical Exam
-
General: No Acute Distress
Abdomen: Soft, Distended (mild), Tender (lower abdominal, throughout) and Other (stoma dark pink/viable, flatus and bowel sweat in appliance, CHI drain with cloudy pink serosanguinous fluid, Garza with light punch colored urine)
Skin: Warm
Wound: Dressing in Place
--- NOTE | 2023-07-24 13:32 | PTCARENOTE ---
Assumed care of Pt at shift change, present in room. Pt resting comfortably in bed, reports abd pain ~ 7/10. Continues with Dilaudid PAROLE HEARING OFFICER pump. Colostomy empty with scant amount of blood in bag. R CHI drain with serosanguineous drainage.
Luna draining bloody urine. NSS @ 100ml/hr infusing into LAC; Will continue to monitor and assess.
[2023-07-24] MEDS: FLOMAX 0.400000000000000022 MG PO (21:36)
[2023-07-25] VITALS (15 sets, daily range): BP systolic 111–147; BP diastolic 65–80; BMI 36.4; BMI 36.3
[2023-07-25] MEDS: DILAUDID PCA 30 IV (01:55)
[2023-07-25] MEDS: ZOSYN 50 IV ×4 (04:45→21:31)
[2023-07-25 05:37] LABS: % Basophils 0.4 % (0-2); % Eosinophils 0.9 % (0-6); % Lymphocytes 8.7 % (20.5-51.1); % Monocytes 7.2 % (1.7-9.3); % Neutrophils 81.8 % (42.2-75.2); Absolute Basophils 0.1 10^3/uL (0-0.2); Absolute Eosinophils 0.1 10^3/uL (0-0.7); Absolute Immature Granulocytes 0.1 10^3/uL (0-0.05); Absolute Monocytes 0.8 10^3/uL (0.1-0.6); Absolute Neutrophils 9.4 10^3/uL (1.4-6.5); Hematocrit 24.7 % (39.0-52.0); Mean Corp Hgb Conc. 32.4 g/dL (33.0-37.0); Mean Corpuscular Hgb 29.9 pg (27.0-31.0); Mean Corpuscular Volume 92.2 fL (80.0-94.0); Mean Platelet Volume 8.3 fL (7.4-10.4); Nucleated Red Blood Cells % 0 % (-); Platelet Count 201 10^3/uL (130-400); Red Blood Cell Count 2.68 10^6/uL (4.70-6.10); Red Cell Dist. Width 15.9 % (11.5-14.5); White Blood Cell Count 11.5 10^3/uL (4.8-10.8)
[2023-07-25 06:02] LABS: Blood Urea Nitrogen 9 mg/dl (9-20); Calcium 7.4 mg/dl (8.4-10.2); Carbon Dioxide 27 mmol/L (22-30); Chloride 106 mmol/L (98-107); Estimated Creatinine Clearance > 125 ml/min; Glucose 107 mg/dl (70-99); Magnesium 2.1 mg/dl (1.6-2.3); Potassium 3.2 mmol/L (3.5-5.1); Sodium 135 mmol/L (135-145); eGFR > 60.00
[2023-07-25] MEDS: KCL 270 MEQ IV (08:06)
[2023-07-25] MEDS: NSS 1000 IV ×2 (08:06→21:31)
[2023-07-25] MEDS: NSS (PRESERVATIVE FREE) 10 ML IV (08:07)
[2023-07-25] MEDS: PROTONIX IV 40 MG IV (08:07)
--- NOTE | 2023-07-25 08:16 | W.PN.HOSP.TC ---
Today's Communication/Plan
-
diet advancement per surgery
replete K
repeat cultures
cont zosyn
OOB
no objection to downgrade pt
Assessment / Plan
Assessment / Plan
pt is a 58 year old male
no objection from medicine to downgrade pt from IMU status
Worsening pelvic anastomotic leak, associated with severe pain-- s/p surgery 07/21 for exploratory laparotomy and abdominoperineal resection by CRS along with cysto, bilateral ureteral stent placement by urology-- post op care per CRS, diet
advancement per surgery-- cont zosyn per CRS--blood culture positive for gm positive cocci from 07/20, need repeat--consider urology follow up as urine now blood tinged
hypokalemia--replete
Likely reactive leucocytosis post surgery, pt already on Abx-- improving
Metastatic rectal cancer s/p resection on chronic chemotherapy--would consult onc if still getting active chemo
Liver mass (secondary to metastatic disease) s/p resection
Left renal mass status post robotic left partial nephrectomy
essential HTN--pt on toprol XL TRUSS ASSEMBLER--will restart with holding parameters as pt can have sips of water and ice
DVT ppx: Lovenox SQ
code status -- full code
Anticipated Discharge: > 48 hours
Subjective/Interval History
-
Date of Service: July 25, 2023
pt sleeping, awoke, no c/o
Objective Data
-
Labs:
Laboratory Results
07/25/23
04:51
WBC 11.5 H
Hgb 8.0 L
Hct 24.7 L
Plt Count 201
Sodium 135
Potassium 3.2 L
Chloride 106
Carbon Dioxide 27
BUN 9
Creatinine 0.5 L
Glucose 107 H
Calcium 7.4 L
Vital Signs:
max temp for 24 hours
07/24/23
19:25
Temp 98.7 F
Vital Signs
Temp Pulse Resp BP Pulse Ox
98.4 F 64 16 111/72 88
07/25/23 03:30 07/25/23 06:00 07/25/23 06:00 07/25/23 06:00 07/25/23 06:00
I&O
07/24/23 07/25/23 07/26/23
06:59 06:59 06:59
Intake Total 2600 / 2600 2520 / 2520
Output Total 1145 / 1145 1300 / 1300
Balance 1455 / 1455 1220 / 1220
Review of Systems
-
All other systems: Reviewed and negative
Physical Exam
-
General: Well Developed, Well Nourished and No Apparent Distress
HEENT: Normocephalic and Atraumatic
Respiratory: Clear to Auscultation; Negative Wheezes or Rhonchi
Cardiac: Regular Rhythm and S1/S2; Negative Murmur
GI: Soft, Nontender, Nondistended, Normal Bowel Sounds and Ostomy
Genito-urinary: Bloody Urine and Luna
Musculoskeletal: No Clubbing, No Cyanosis and No Edema
Skin: Warm
Neuro: Awake
[2023-07-25] MEDS: TOPROL XL 50 MG PO (10:31)
--- NOTE | 2023-07-25 11:48 | CM ---
Patient with Hx metastatic rectal cancer on chemo with Dx Worsening pelvic anastomotic leak s/p exploratory laparotomy, abdominoperineal resection, ileostomy creation, cysto, bilateral ureteral stent placement. Room air. Clears/IVF. R CHI drain.
Luna out today. Receiving Dilaudid CHAR FILTER TANK TENDER, IV Zosyn. PT recommends HH.
Met with patient and offered VN for PT and continued ostomy teaching- patient declined at this time. Patient says his would like to get a refresher on ostomy care while he is here, and he doesn't think he will need VN nurse for this.
Plan confirm with patient/ they are comfortable to resume ostomy care at home without VN, and offer VN again if requested or if CHI Drain remains at d/c.
Plan home.
--- NOTE | 2023-07-25 12:56 | W.PN.CRS1 ---
Today's Communication / Plan
-
Continue MAINTENANCE SUPERVISOR
Trial on clear liquids
Transfer out of IMU
Assessment/Plan
-
58 yo male with h/o metastatic rectal cancer (following with Dr. Chatterjee for chemotherapy) with prior low anterior resection with loop ileostomy creation about 4 years ago and subsequent reversal later that year with chronic anastomotic leak over the
past 2 years previously stable but with recent worsening now POD #3 ex lap with APR and ileostomy creation
AFVSS
Following for bowel recovery,now with flatus via stoma
Pain managed well with MAINTENANCE SUPERVISOR
Significant leukocytosis on presentation now trending down
Acute blood loss anemia: H/H trending down. Suspect equilibration after intraoperative losses. Mild hematuria noted secondary to instrumentation.
+Strep V. in one set of blood cultures. Repeat cultures sent
Hypokalemia, repleted by medical team
--Clear liquid diet
--Transfuse x1 unit and check CBC in am
--Continue Dilaudid MAINTENANCE SUPERVISOR with Ofirmev. Hold NSAIDs given drift in h/h
--d/c garza for voiding trial
--Continue IVF
--Trend labs
--OR pathology pending.
--Continue IV Zosyn.
--Wound/stoma RN for ileostomy teaching
--OOB as tolerated, PT following
--Continue to hold chemical vte ppx given drift in h/h. SCDs while in bed
Medical management as per hospitalist team
OK for transfer out of IMU. Continue telemetry to monitor for recurrent tachycardia.
Subjective Data
Procedure
07/22/2023- 1) exploratory laparotomy 2) abdominoperineal resection (APR), 3) ileostomy
Subjective Data
Date of Service: July 25, 2023
Patient seen and examined at bedside with Dr. Rivera. Tolerating sips of clears without nausea. Does not belching. More flatus from stoma. Pain continues to improve day by day.
Objective Data
-
Vital Signs
Temp Pulse Resp BP Pulse Ox
98.4 F 68 14 137/75 95
07/25/23 12:32 07/25/23 12:32 07/25/23 12:32 07/25/23 12:32 07/25/23 12:32
Intake & Output
07/24/23 07/25/23 07/26/23
06:59 06:59 06:59
Intake Total 2600 / 2600 2520 / 2520 320 / 320
Output Total 1145 / 1145 1300 / 1300 500 / 500
Balance 1455 / 1455 1220 / 1220 -180 / -180
Intake:
Oral fluids 120 / 120
IV fluids (Total) 2400 / 2400 2200 / 2200
IV piggybacks 200 / 200 200 / 200 320 / 320
Blood Product Amount Infused ( 0 / 0
mL)
Packed Rbc Leukoreduced Unit 0 / 0
[id number]
Output:
Drain Output (Total) 195 / 195 100 / 100
Right Abdomen Ashish-Powell 195 / 195 100 / 100
Urine, Garza 950 / 950 1200 / 1200 500 / 500
Lab Results
07/25/23 04:51
07/25/23 04:51
Physical Exam
-
General: No Acute Distress
Abdomen: Soft, Distended (mild), Tender (lower abdominal, throughout) and Other (stoma pink/viable, flatus and bowel sweat in appliance, HCI drain with cloudy pink serosanguinous fluid, Garza with light punch colored urine)
Skin: Warm
Wound: Dressing in Place
--- NOTE | 2023-07-25 13:00 | PTCARENOTE ---
1 unit of blood transfusing. No reactions noted. Vital signs stable.
--- NOTE | 2023-07-25 13:57 | PTCARENOTE ---
Patient stood at bedside and was able to void 450 mls of punch/tea colored urine. Pt needed minimal assistance to sit up but then able to stand himself. Pt steady on feet.
--- NOTE | 2023-07-25 15:10 | PTCARENOTE ---
Patient transferred to room 2113, 2 South with RN. Pt transferred with RECEPTIONIST SECRETARY pump. Handoff at bedside.
--- NOTE | 2023-07-25 15:54 | PTCARENOTE ---
pt transferred from IMU 1450 into room 2112. Walked from bed to bed. Aox3 present. CHI drain rt side colostomy left side. HOSIERY OPERATOR pump Dilaudid 0.2mg 10 min lock out. call bryan in reach bed low
[2023-07-25] MEDS: FLOMAX 0.400000000000000022 MG PO (22:07)
[2023-07-26] VITALS (7 sets, daily range): BP systolic 107–158; BP diastolic 73–91; PULSE 80; O2SAT 96; BMI 36.6
[2023-07-26] MEDS: ZOSYN 50 IV ×4 (04:38→21:16)
[2023-07-26 05:06] LABS: % Basophils 0.8 % (0-2); % Eosinophils 1.9 % (0-6); % Immature Granulocytes 1.4 % (0-0.5); % Lymphocytes 11.9 % (20.5-51.1); % Monocytes 7.8 % (1.7-9.3); % Neutrophils 76.2 % (42.2-75.2); Absolute Basophils 0.1 10^3/uL (0-0.2); Absolute Eosinophils 0.2 10^3/uL (0-0.7); Absolute Immature Granulocytes 0.2 10^3/uL (0-0.05); Absolute Lymphocytes 1.4 10^3/uL (1.2-3.4); Absolute Monocytes 0.9 10^3/uL (0.1-0.6); Absolute Neutrophils 8.8 10^3/uL (1.4-6.5); Hematocrit 28.2 % (39.0-52.0); Mean Corp Hgb Conc. 31.9 g/dL (33.0-37.0); Mean Corpuscular Hgb 29.4 pg (27.0-31.0); Mean Corpuscular Volume 92.2 fL (80.0-94.0); Mean Platelet Volume 8.4 fL (7.4-10.4); Nucleated Red Blood Cells % 0 % (-); Platelet Count 232 10^3/uL (130-400); Red Blood Cell Count 3.06 10^6/uL (4.70-6.10); Red Cell Dist. Width 16.7 % (11.5-14.5); White Blood Cell Count 11.6 10^3/uL (4.8-10.8)
[2023-07-26 05:29] LABS: Blood Urea Nitrogen 3 mg/dl (9-20); Calcium 7.9 mg/dl (8.4-10.2); Carbon Dioxide 29 mmol/L (22-30); Chloride 102 mmol/L (98-107); Estimated Creatinine Clearance > 125 ml/min; Glucose 105 mg/dl (70-99); Magnesium 1.8 mg/dl (1.6-2.3); Potassium 3.1 mmol/L (3.5-5.1); Sodium 137 mmol/L (135-145); eGFR > 60.00
[2023-07-26] MEDS: KCL 270 MEQ IV (06:27)
[2023-07-26] MEDS: NSS (PRESERVATIVE FREE) 10 ML IV (08:09)
[2023-07-26] MEDS: PROTONIX IV 40 MG IV (08:09)
[2023-07-26] MEDS: TOPROL XL 50 MG PO (08:11)
--- NOTE | 2023-07-26 08:25 | W.PN.HOSP.TC ---
Today's Communication/Plan
-
see A/P
Assessment / Plan
Assessment / Plan
A/P:
# Worsening pelvic anastomotic leak, associated with severe pain
s/p surgery 07/21 for exploratory laparotomy and abdominoperineal resection by CRS along with cysto, bilateral ureteral stent placement by urology
post op care per CRS, ADAT per surgery, cont clears
blood culture positive for Viridans strep from admission 07/20, follow repeat blood culture
cont Zosyn for now
ID CS
# blood tinged urine post op
Off Luna
cont to monitor gross hematuria
consider urology eval if hematuria continues
# hypokalemia
replete IV and PO
Mag level acceptable
# Likely reactive leucocytosis post surgery, improving
Cont to trend WBC
# Metastatic rectal cancer s/p resection on chronic chemotherapy
would consult onc if still getting active chemo
# Liver mass (secondary to metastatic disease) s/p resection
# Left renal mass status post robotic left partial nephrectomy
# Essential HTN
Pt on toprol XL SEAL SKINNER, restarted with holding parameter
DVT ppx: Lovenox SQ
code status: full code
Anticipated Discharge: > 48 hours
Subjective/Interval History
-
Date of Service: July 26, 2023
Objective Data
-
Labs:
Laboratory Results
07/26/23
04:35
WBC 11.6 H
Hgb 9.0 L
Hct 28.2 L
Plt Count 232
Sodium 137
Potassium 3.1 L
Chloride 102
Carbon Dioxide 29
BUN 3 L
Creatinine 0.5 L
Glucose 105 H
Calcium 7.9 L
Vital Signs:
Vital Signs
Temp Pulse Resp BP Pulse Ox
36.3 C 71 16 158/91 98
03/18/24 08:22 07/26/23 08:22 07/26/23 08:22 07/26/23 08:22 07/26/23 08:22
I&O
07/25/23 07/26/23 07/27/23
06:59 06:59 06:59
Intake Total 2520 / 2520 3240 / 3240
Output Total 1300 / 1300 2175 / 2175
Balance 1220 / 1220 1065 / 1065
Review of Systems
-
Genitourinary: Reports Other (bloody urine)
Physical Exam
-
General: Well Developed, Well Nourished, No Apparent Distress and Comfortable
HEENT: Normocephalic and Atraumatic
Respiratory: Clear to Auscultation and Non Labored Respirations; Negative Accessory Resp Muscle Use
Cardiac: Regular Rhythm and S1/S2; Negative Murmur
GI: Soft, Nontender, Nondistended, Normal Bowel Sounds, Ostomy and Other (abdominal drain )
Genito-urinary: Bloody Urine
Musculoskeletal: No Clubbing, No Cyanosis and No Edema
Skin: Warm
Neuro: Awake
Psych: Calm and Intact Judgement/Insight
Data Reviewed
-
Labs: Labs Reviewed by me
[2023-07-26] MEDS: KCL 40 MEQ PO (09:40)
--- NOTE | 2023-07-26 10:00 | WOUNDNOTE ---
[facility] RN note: Patient s/p ostomy surgery
See H&P for complete history.
PMH: Rectal cancer with resection and ileostomy 4 yrs ago, chemotherapy treatment.
Ostomy location and type: LUQ Ileostomy for anastomotic leak.
Introduced myself to patient, assessed stoma which is pink, slightly budded for small amt of stool. No leakage from appliance. Patient states he is familiar with managing an Ileostomy, would like an update and permission given to enroll in secure
start program. Planned to change appliance along with Alina tomorrow afternoon. Ordered Wiseman wafer # [id number] Wiseman pouch # [id number]
Asked nurse to bring to bedside when arrives and aware of the above.
Note to case management: VN services recommended for ostomy teaching if requested.
Nursing care plan updated, will follow as needed.
[2023-07-26] MEDS: NSS 1000 IV ×2 (11:10→19:45)
--- NOTE | 2023-07-26 12:48 | W.PN.CRS1 ---
Today's Communication / Plan
-
Continue Zosyn
Advance to full liquids
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
Assessment/Plan
-
58 yo male with h/o metastatic rectal cancer (following with Dr. Chatterjee for chemotherapy) with prior low anterior resection with loop ileostomy creation about 4 years ago and subsequent reversal later that year with chronic anastomotic leak over the
past 2 years previously stable but with recent worsening now�POD # 4�ex lap with APR and ileostomy creation
1. Labs normal. Hemoglobin 9.0 from 8.0 status post 1 unit of blood. Will watch. WBC 11.6. Continue antibiotics.
2. Will hold Lovenox today due to anemia. Teds and SCDs for DVT prophylaxis.
3. Continue CHI drain.
4. Continue Dilaudid BLADE WORKER today given pain.
5. Out of bed as tolerated.
6. Advance diet to full's. Discontinue IV fluids.
7. OR pathology pending.
8. Wound RN for ileostomy teaching.
Subjective Data
Procedure
07/22/2023- 1) exploratory laparotomy 2) abdominoperineal resection (APR), 3) ileostomy
Subjective Data
Date of Service: July 26, 2023
Patient states he still has pain that comes and goes. He denies nausea or vomiting. He feels a little distended. His stoma has some function.
Objective Data
-
Vital Signs
Temp Pulse Resp BP Pulse Ox
98.4 F 70 16 107/74 95
07/26/23 11:07 07/26/23 11:07 07/26/23 11:07 07/26/23 11:07 07/26/23 11:27
Intake & Output
07/25/23 07/26/23 07/27/23
06:59 06:59 06:59
Intake Total 2520 / 2520 3240 / 3240
Output Total 1300 / 1300 2175 / 2175 600 / 600
Balance 1220 / 1220 1065 / 1065 -600 / -600
Intake:
Oral fluids 120 / 120 1020 / 1020
IV fluids (Total) 2200 / 2200 1550 / 1550
IV piggybacks 200 / 200 420 / 420
Blood Product Amount Infused ( 250 / 250
mL)
Packed Rbc Leukoreduced Unit 250 / 250
[id number]
Output:
Drain Output (Total) 100 / 100 175 / 175 100 / 100
Right Abdomen Ashish-Powell 100 / 100 175 / 175 100 / 100
Urine, Luna 1200 / 1200 500 / 500
Urine, Voided 1500 / 1500 500 / 500
Other:
Number of approximated MODERATE 2
amounts of urine
Lab Results
07/26/23 04:35
07/26/23 04:35
Physical Exam
-
General: No Acute Distress and AOx3
Abdomen: Soft, Distended (Mild), Tender (Mild around incision) and Other (Drain serous)
Wound: Dressing Changed (On abdomen and rectal area)
Incision: Clear, Dry, Intact
--- NOTE | 2023-07-26 14:43 | CM ---
Reviewed the chart notes. Per notes, diet advanced to full liquids. If patient discharges with CHI drain may need VN services. CM continues to be available to patient/family and is monitoring medical plan for needs at discharge.
Plan: Discharge to home with possible need of VN if drain remains.
--- NOTE | 2023-07-26 15:11 | VATNOTE ---
Called by pt's primary RN to assess R hand. Pt's R hand is edematous compared to L hand. IV in R arm removed and message sent to Dr. Ferrell recommending U/S. This RN offered to access pt's port; however, pt still refusing. Will continue to monitor.
[2023-07-26] MEDS: FLOMAX 0.400000000000000022 MG PO (21:16)
[2023-07-27 04:30] VITALS: BP 154/84
[2023-07-27] MEDS: ZOSYN 50 IV (04:50)
[2023-07-27 04:56] VITALS: BMI 36.7
[2023-07-27 06:57] LABS: % Basophils 0.6 % (0-2); % Eosinophils 1.9 % (0-6); % Immature Granulocytes 1.1 % (0-0.5); % Lymphocytes 11.5 % (20.5-51.1); % Monocytes 10.1 % (1.7-9.3); % Neutrophils 74.8 % (42.2-75.2); Absolute Basophils 0.1 10^3/uL (0-0.2); Absolute Eosinophils 0.2 10^3/uL (0-0.7); Absolute Immature Granulocytes 0.1 10^3/uL (0-0.05); Absolute Lymphocytes 1.3 10^3/uL (1.2-3.4); Absolute Monocytes 1.1 10^3/uL (0.1-0.6); Absolute Neutrophils 8.4 10^3/uL (1.4-6.5); Hemoglobin 9.6 g/dL (13.0-18.0); Mean Corpuscular Hgb 28.7 pg (27.0-31.0); Mean Corpuscular Volume 89.8 fL (80.0-94.0); Mean Platelet Volume 8.6 fL (7.4-10.4); Nucleated Red Blood Cells % 0 % (-); Platelet Count 265 10^3/uL (130-400); Red Blood Cell Count 3.34 10^6/uL (4.70-6.10); Red Cell Dist. Width 16.5 % (11.5-14.5); White Blood Cell Count 11.2 10^3/uL (4.8-10.8)
[2023-07-27 07:15] LABS: Blood Urea Nitrogen 2 mg/dl (9-20); Calcium 7.9 mg/dl (8.4-10.2); Carbon Dioxide 27 mmol/L (22-30); Chloride 103 mmol/L (98-107); Estimated Creatinine Clearance > 125 ml/min; Glucose 97 mg/dl (70-99); Magnesium 1.6 mg/dl (1.6-2.3); Potassium 3.2 mmol/L (3.5-5.1); Sodium 133 mmol/L (135-145); eGFR > 60.00
[2023-07-27 07:41] VITALS: BP 155/89
--- NOTE | 2023-07-27 08:38 | CON.ID ---
Consultation
-
Date/Time Consultation Requested: 07/26/23 8:34
Date/Time Consultation Performed: 07/27/23 8:39
Requesting Provider: Dr Ferrell
Performing Provider: Dr Villalobos
Reason for Consultation: pelvic anastomotic leak
Chief Complaint / Past History
Chief Complaint
sacral pain
History of Present Illness
Mr Cutler is a 58 year old male with history of rectal cancer s/p neoadjuvant chemoradiation and low anterior resection with loop ileostomy about 4 years ago - then reversed. Later with progression to metastatic disease to the liver s/p partial
hepatectomy. Also with h/o RCC s/p L nephrectomy. He has been on chemotherapy for ~4 years for stage IV colon cancer with improved CEA. 09/24/21 CT c/a/p first reports suspected chronic contained anastomotic leak/presacral sinus. This amounts to
a 2 year history of a contained anastomotic leak in the pelvis which has been described as stable on imaging. Then a few weeks before admission he developed debilitating pelvic and right buttock pain with radiation to the right knee. No fevers,
chills, nausea or vomiting. No change in bowel habits. An outpatient lumbar spine xray 07/19/23 no evidence of osteomyelitis at that time. 07/05/23 CT c/a/p: 'Stable chronic contained presacral leak/collection at the level of the rectosigmoid
anastomosis' During evaluation with colorectal surgery surgeon reported he could palpate the sacral bone on VICKY and collection was described as being likely in tissue overlying the sacrum. By report he was on oral antibiotics under the direction of
his oncologist Dr Chatterjee - patient cannot recall which ones - believes it was a single pill once daily; records will be requested. Note 2021 endoscopic evaluation showed intact anastomosis. He was admitted and taken to the OR electively for
exploratory laparotomy and abdominoperineal resection, there were no immediate complication but dense pelvic adhesions and posterior disruption of old anastomosis were noted. Blood cultures x2 were done with 1 of 2 sets with VGS, There were no
cultures taken from the OR. I have reviewed Dr Rivera's operative report, Dr Goodwin's portion of the OR report is pending at this time. Dr Rivera's report did not include the beyond dissection down to the pelvis and there is not comment if
absecess/collection was seen or sacrum was palpated. Specimens included anus, portion of old anastomosis and portion of sigmoid. Patient was started on zosyn. On arrival patients wbc was 14.9 increased from march when it was 8.3 normal; it
peaked on HD 2 at 49.5 and has rapidly improved to 11.2 which is almost normal. Hgb 9.6 down from 13.7 on arrival, plt did increase but has not been frankly elevated, L shift has been noted and just resolved today, eos were not present initially
and have normalized, cr 0.7, K a bit low last 3 days, 07/22 t bili 0.6, ast 39, alt 19. alk pohs 96. Old cultures back to 2019 in [facility] also reviewed) patient has not previously been known to be colonized with MDROs. Pathology is pending.
Course has been notable in that his ostomy is viable, abdomen soft and nontender, his diet is being advanced, pain has been an ongoing issue and he remained on a CONFERENCE RESERVATIONIST through today with plans to transition to oral pain medications today,
Past History
Additional Past Medical History:
�(rectal cancer, left renal cell cancer) and Other (Legionnaires disease)
Additional Past Surgical History:
�Reports Bowel Resection (LAR with ileostomy 05/2019 - Dr. Rivera), Urological (kidney surgery 2019, liver surgery 2019) and Other (� Testicular surgery age 8)
Allergy History:
acetaminophen [From Tylenol] Allergy (Verified 07/21/23 10:05)
Rash
aspirin Allergy (Verified 07/21/23 10:05)
fever, hallucinations - as a child
Medications Reviewed: Yes
Social History
Tobacco: Non-Smoker
Alcohol: Occasional
Personal:
Family History
Family History: Not Pertinent
Review of Systems
Review of Systems
General: Negative Fever or Chills
All systems: All other systems were reviewed and were negative
Vital Signs
Temp Pulse Resp BP Pulse Ox
97.6 F 70 19 155/89 98
07/27/23 07:41 07/27/23 07:41 07/27/23 07:41 07/27/23 07:41 07/27/23 07:41
Physical Exam
Physical Exam
Constitutional: No Acute Distress, Chronically Ill and Obese
Cardiovascular: Regular Rate and S1/S2; Negative Murmur or Rub
Pulmonary: Clear and Symmetric; Negative Wheezes, Rales or Rhonchi
Gastrointestinal: Soft, Non Tender, Non Distended and Normal Bowel Sounds
Skin: Warm and Dry; Negative Rash or Jaundice
Wound: Other (bleeding through the surgical dressing onto the underwear, drain serosaunguinous fluid; stoma pink - stool liquid/dark)
Lab / Diagnostic Study Results
07/27/23 05:52
07/27/23 05:52
Abs Immat Gran (auto) 0.1 10^3/uL (0-0.05) H 07/27/23 05:52
Absolute Neuts (auto) 8.4 10^3/uL (1.4-6.5) H 07/27/23 05:52
Absolute Lymphs (auto) 1.3 10^3/uL (1.2-3.4) 07/27/23 05:52
Absolute Monos (auto) 1.1 10^3/uL (0.1-0.6) H 07/27/23 05:52
Absolute Basos (auto) 0.1 10^3/uL (0-0.2) 07/27/23 05:52
Immature Gran % 1.1 % (0-0.5) H 07/27/23 05:52
Neutrophils % 74.8 % (42.2-75.2) 07/27/23 05:52
Lymphocytes % 11.5 % (20.5-51.1) L 07/27/23 05:52
Monocytes % 10.1 % (1.7-9.3) H 07/27/23 05:52
Eosinophils % 1.9 % (0-6) 07/27/23 05:52
Basophils % 0.6 % (0-2) 07/27/23 05:52
PT 14.6 Sec (11.4-14.6) 07/21/23 10:28
INR 1.14 07/21/23 10:28
Lactic Acid 2.0 mmol/L (0.7-2.0) 07/21/23 10:27
Microbiology Results
Micro:
07/21/23 10:28 Blood Culture - Final
Blood/Venous No Growth - Final Report
07/25/23 10:16 Blood Culture - Preliminary
Blood/Venous No Growth in 24 hours- Final report to follow
07/21/23 10:37 Blood Culture - Preliminary
Blood/Venous Viridans Streptococcus Group
Gram Stain - Preliminary
Assessment / Plan
Pelvic Fluid Collection - chronic at least 2 years
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
- 1 of two sets of blood cultures from arrival with [facility], repeat single culture from 07/24 no growth to date
- send second set today
- reviewed last CT a/p with Dr Biswas; collection was directly anterior to the sacral bone, no obvious osteitis or evidence of bony destrutction
- plan MRI pelvis with and without contrast
- ESR/CRP for baseline
- discussed with Dr Goodwin - will follow up his OR note
- obtain records from Dr Chatterjee - clarify what antibiotics he was on prior to procedure, duration etc
- switch to ertapenem for ease of dosing
- may consider a long course of IV antibiotics - discussed with patient - decisions pending MRI findings; has already been responding well to zosyn in my opinion
- follow clinically
Hypokalemia
- management per hospitalist
Care Review
Plan reviewed with: Physician (Dr Biswas CT, Dr Goodwin OR)
[2023-07-27] MEDS: MAGNESIUM SULFATE 50 IV (08:56)
[2023-07-27] MEDS: KCL 40 MEQ PO (08:56)
[2023-07-27] MEDS: TOPROL XL 50 MG PO (08:57)
[2023-07-27] MEDS: NSS (PRESERVATIVE FREE) 10 ML IV (08:58)
[2023-07-27] MEDS: PROTONIX IV 40 MG IV (08:58)
--- NOTE | 2023-07-27 09:21 | W.PN.HOSP.TC ---
Today's Communication/Plan
-
see A/P
Assessment / Plan
Assessment / Plan
A/P:
# Worsening pelvic anastomotic leak, associated with severe pain
s/p surgery 07/21 for exploratory laparotomy and abdominoperineal resection by CRS along with cysto, bilateral ureteral stent placement by urology
post op care per CRS, ADAT per surgery, advanced to full liquid
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
blood culture positive for Viridans strep from admission 07/20, repeat blood culture from 07/24 negative
cont Zosyn for now
ID Consulted
# blood tinged urine post op, resolved
Off Luna
# hypokalemia
# hypomagnesemia
replete K PO (pt did not tolerate IV due to burning)
replete Mag IV
# Likely reactive leucocytosis post surgery, improving
Cont to trend WBC
# Metastatic rectal cancer s/p resection on chronic chemotherapy
# Liver mass (secondary to metastatic disease) s/p resection
recc outpt onc follow up
# Left renal mass status post robotic left partial nephrectomy
# Essential HTN
cont MILK PICKUP DRIVER toprol XL with holding parameter
DVT ppx: Lovenox SQ
code status: full code
Dispo: PT recc HH
Anticipated Discharge: > 48 hours
Subjective/Interval History
-
Date of Service: July 27, 2023
Objective Data
-
Labs:
Laboratory Results
07/27/23
05:52
WBC 11.2 H
Hgb 9.6 L
Hct 30.0 L
Plt Count 265
Sodium 133 L
Potassium 3.2 L
Chloride 103
Carbon Dioxide 27
BUN 2 L
Creatinine 0.7
Glucose 97
Calcium 7.9 L
Vital Signs:
Vital Signs
Temp Pulse Resp BP Pulse Ox
36.4 C 70 19 155/89 98
07/27/23 07:41 07/27/23 08:57 07/27/23 07:41 07/27/23 08:57 07/27/23 07:41
I&O
07/26/23 07/27/23 07/28/23
06:59 06:59 06:59
Intake Total 3240 / 3240 1400 / 1400
Output Total 2175 / 2175 2034
Balance 1065 / 1065 -635 / -635
Review of Systems
-
Genitourinary: Reports Other (hematuria has resolved )
Physical Exam
-
General: Well Developed, Well Nourished, No Apparent Distress and Comfortable
HEENT: Normocephalic and Atraumatic
Respiratory: Clear to Auscultation and Non Labored Respirations; Negative Accessory Resp Muscle Use
Cardiac: Regular Rhythm and S1/S2; Negative Murmur
GI: Soft, Nontender, Nondistended, Normal Bowel Sounds, Ostomy and Other (abdominal drain )
Genito-urinary: Negative Luna
Musculoskeletal: No Clubbing, No Cyanosis and No Edema
Skin: Warm
Neuro: Awake
Psych: Calm and Intact Judgement/Insight
Data Reviewed
-
Labs: Labs Reviewed by me
[2023-07-27 10:15] LABS: Erythrocyte Sed Rate 92 mm/hour (0-20)
--- NOTE | 2023-07-27 10:40 | W.PN.CRS1 ---
Addendum entered and electronically signed by Billy Rivera MD 07/27/23 17:16:
I saw and examined the patient.
The PA's note was reviewed and I agree with the note.
Comment:
Seen in am with PA.
Better pain control. Tolerating diet.
VItals ok. WBC 11.2.
Abdomen mildly distended with appropriate incisional tenderness; stoma viable with output; CHI with SS output.
Advanced to regular diet.
Anticipate transitioning to po pain meds tomorrow.
Continue antibiotics---ID consulted--will follow their recommendations.
Continue other measures.
Original Note:
Today's Communication / Plan
-
regular diet
antibiotics
heme onc
Assessment/Plan
-
58 yo male with h/o metastatic rectal cancer (following with Dr. Chatterjee for chemotherapy) with prior low anterior resection with loop ileostomy creation about 4 years ago and subsequent reversal later that year with chronic anastomotic leak over the
past 2 years previously stable but with recent worsening now�POD #5�ex lap with APR and ileostomy creation
1.� Labs normal.� Hemoglobin 9.6, which is improving.� Will watch.� WBC 11.2.� Continue antibiotics. ID has been consulted by hopsitalist.
2.� Start Lovenox today.� Teds and SCDs for DVT prophylaxis.
3.� Continue CHI drain.
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
5.� Out of bed as tolerated.
6.� Advance diet to regular.
7.� OR pathology pending.
8.� Wound RN for ileostomy teaching.
9. Heme onc consulted given history and chemo plan going forward.
Subjective Data
Procedure
07/22/2023- 1) exploratory laparotomy 2) abdominoperineal resection (APR), 3) ileostomy
Subjective Data
Date of Service: July 27, 2023
Patient states he still has pain but it is overall improving. His ileostomy is functioning. His urine is more clear. He is tolerating fulls.
Objective Data
-
Vital Signs
Temp Pulse Resp BP Pulse Ox
97.6 F 70 19 155/89 98
07/27/23 07:41 07/27/23 08:57 07/27/23 07:41 07/27/23 08:57 07/27/23 07:41
Intake & Output
07/26/23 07/27/23 07/28/23
06:59 06:59 06:59
Intake Total 3240 / 3240 1400 / 1400
Output Total 2175 / 2175 2034 / 2034
Balance 1065 / 1065 -635 / -635
Intake:
Oral fluids 1020 / 1020 240 / 240
IV fluids (Total) 1550 / 1550 960 / 960
IV piggybacks 420 / 420 200 / 200
Blood Product Amount Infused ( 250 / 250
mL)
Packed Rbc Leukoreduced Unit 250 / 250
[id number]
Output:
Drain Output (Total) 175 / 175 335 / 335
Right Abdomen Ashish-Powell 175 / 175 335 / 335
Urine, Luna 500 / 500
Urine, Voided 1500 / 1500 1700 / 1700
Other:
Number of approximated MODERATE 2
amounts of urine
Lab Results
07/27/23 05:52
07/27/23 05:52
Physical Exam
-
General: No Acute Distress and AOx3
Abdomen: Soft, Non Distended, Non Tender and Other (ileostomy warm and pink with function)
Incision: Clear, Dry, Intact
[2023-07-27] MEDS: ZOSYN IV (10:58)
[2023-07-27] MEDS: KCL 20 MEQ PO ×2 (11:02→13:54)
--- NOTE | 2023-07-27 11:06 | CM ---
WBC 11.2, CHI drain, Dilaudid RF TEST ENGINEER, Diet increased to regular, Hem-Onc and ID consults. Discharge plan of care: Patient does not want VN for ostomy care. May need to reconsider if CHI drain remains at the time of discharge.
[2023-07-27 11:12] VITALS: BP 135/76
[2023-07-27] MEDS: NSS 1000 IV (13:20)
[2023-07-27] MEDS: INVANZ 60 MG IV (13:20)
[2023-07-27] MEDS: DILAUDID PCA 30 IV (13:21)
--- NOTE | 2023-07-27 13:41 | CON.ONC ---
Impression
Impression
metastatic rectal cancer, stable disease/good response on FOLFIRI/Marisol, last 06/30/23
anastomotic leak, s/p APR w/ ileostomy 07/22/23
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
Plan
Plan
Will arrange f/u with Dr. Chatterjee in early August to discuss further cancer therapy, possibly switching to oral Xeloda for maintenance
Will need 6 weeks IV abx for osteomyelitis of sacrum
Will sign off, please call w/ questions
Patient History
History of Present Illness
This is a 58-year-old man with a long history of metastatic rectal cancer, well-known to Dr. Chatterjee, who was admitted July 20 for planned APR with ileostomy secondary to chronic anastomotic leak with possible sacral osteomyelitis. He has been on
systemic chemotherapy with FOLFIRI and bevacizumab, last given June 30, 2023. When he saw Dr. Chatterjee in follow-up in late June, they briefly discussed consideration for maintenance Xeloda since his updated CT scans showed continued positive
response to systemic treatment.
He has slowly recovering from surgery. He anticipates needing intravenous antibiotics at home for 6 weeks after discharge, with hopeful discharge at the end of this week.
Past-Medical/Surgical History
Past medical history includes metastatic rectal cancer, with history of partial hepatectomy for liver metastases. Also has a history of left kidney cancer, treated with nephrectomy.
Social history: He is , drinks alcohol socially, non-smoker.
Family history: His mother had colon cancer
Patient Medication
Medication Instructions Recorded Confirmed Last Taken Type
metoprolol succinate 50 mg 50 mg PO DAILY Heart 01/21/21 07/21/23 07/21/23 History
tablet,extended release 24 hr disease/condition
oxycodone-acetaminophen 5 mg-325 1 tab PO Q6H PRN severe pain #7 07/17/23 07/21/23 07/21/23 Rx
mg tablet (Percocet) tabs
ibuprofen 200 mg tablet (Motrin IB) 400 mg PO TIDPRN PRN mild pain 07/21/23 07/21/23 5 Days Ago History
~07/16/23
naproxen sodium 220 mg tablet 440 mg PO TIDPRN PRN mild pain 07/21/23 07/21/23 5 Days Ago History
(Aleve) ~07/16/23
therapeutic multivitamin 1 tab PO DAILY Supplement 07/21/23 07/21/23 07/21/23 History
Active Medications
Generic Name Dose Route Start Last Admin
Trade Name Freq PRN Reason Stop Dose Admin
Enoxaparin Sodium 40 mg 07/27/23 18:00
Enoxaparin Sodium 40 Mg/0.4 Ml Syringe SC 08/24/23 17:59
QPM SONIA
Hydromorphone HCl 30 mg in 30 mls @ 0 mls/hr 07/25/23 18:15 07/27/23 13:21
Dilaudid Excavating Machine Operator IV 30 mls
PER PROTOCOL SONIA Administration
Protocol
Per Protocol
Ertapenem 1,000 mg/ Sodium 60 mls @ 120 mls/hr 07/27/23 12:00 07/27/23 13:20
Chloride IV 60 mls
Q24H SONIA Administration
Sodium Chloride 1,000 mls @ 40 mls/hr 07/27/23 11:30 07/27/23 13:20
Nss IV 1,000 mls
.Q24H SONIA Administration
Ketorolac Tromethamine 10 mg 07/22/23 20:00 07/24/23 07:49
Ketorolac 15 Mg/Ml Injection IV 07/27/23 19:59 10 mg
Q6H SONIA Administration
Metoprolol Succinate 50 mg 07/25/23 08:00 07/27/23 08:57
Metoprolol 50 Mg Extended Release Tablet PO 08/22/23 07:59 50 mg
DAILY SONIA Administration
Naloxone HCl 0.04 mg 07/23/23 11:17
Naloxone (0.4 Mg/Ml) 1 Ml Injection IV 08/20/23 11:16
Q2MPRN PRN
RR </= 10/min / Pasero scale=4
Ondansetron HCl 4 mg 07/21/23 11:42
Ondansetron 4 Mg/2 Ml Vial IV 08/18/23 11:41
Q6HPRN PRN
nausea or vomiting
Pantoprazole Sodium 40 mg 07/23/23 08:00 07/27/23 08:58
Pantoprazole Sodium 40 Mg/10 Ml Vial IV 08/20/23 07:59 40 mg
DAILY SONIA Administration
Potassium Chloride 20 meq 07/27/23 14:00
Potassium Chloride 20 Meq Extended Release Tablet PO 07/27/23 14:01
ONCE@1400 ONE
Sodium Chloride 0 flush 07/22/23 19:00
Sodium Chloride 0.9% (Flush) Syringe IV 08/19/23 18:59
PER PROTOCOL SONIA
Sodium Chloride 10 ml 07/23/23 08:00 07/27/23 08:58
Sodium Chloride 0.9% (Preservative Free) 10 Ml Vial IV 08/20/23 07:59 10 ml
DAILY SONIA Administration
Sodium Chloride 0.9 ml 07/23/23 11:17
Sodium Chloride 0.9% (Preservative Free) 10 Ml Vial IV 08/20/23 11:16
Q2MPRN PRN
naloxone dilution
Tamsulosin HCl 0.4 mg 07/22/23 22:00 07/26/23 21:16
Tamsulosin 0.4 Mg Capsule PO 08/19/23 21:59 0.4 mg
HS SONIA Administration
Review of Systems
-
All Other Systems: Not reviewed unless documented
Physical Exam
-
General: Well Developed, Well Nourished, No Apparent Distress, Comfortable and Conversant
HEENT: Moist Mucous Membranes
Pulmonary: Other (Breathing comfortably, no conversational dyspnea)
GI: Other (Ileostomy)
Musculoskeletal: No Clubbing, No Cyanosis and No Edema
Neurology: Non Focal, No Lateralizing Symptoms and No Word Finding Difficulty
Skin: Warm and Dry
Psych: Calm and Intact Judgement/Insight
Labs
Lab Results
WBC 11.2 10^3/uL (4.8-10.8) H 07/27/23 05:52
RBC 3.34 10^6/uL (4.70-6.10) L 07/27/23 05:52
Hgb 9.6 g/dL (13.0-18.0) L 07/27/23 05:52
Hct 30.0 % (39.0-52.0) L 07/27/23 05:52
MCV 89.8 fL (80.0-94.0) 07/27/23 05:52
MCH 28.7 pg (27.0-31.0) 07/27/23 05:52
MCHC 32.0 g/dL (33.0-37.0) L 07/27/23 05:52
RDW 16.5 % (11.5-14.5) H 07/27/23 05:52
Plt Count 265 10^3/uL (130-400) 07/27/23 05:52
MPV 8.6 fL (7.4-10.4) 07/27/23 05:52
Abs Immat Gran (auto) 0.1 10^3/uL (0-0.05) H 07/27/23 05:52
Absolute Neuts (auto) 8.4 10^3/uL (1.4-6.5) H 07/27/23 05:52
Absolute Lymphs (auto) 1.3 10^3/uL (1.2-3.4) 07/27/23 05:52
Absolute Monos (auto) 1.1 10^3/uL (0.1-0.6) H 07/27/23 05:52
Absolute Eos (auto) 0.2 10^3/uL (0-0.7) 07/27/23 05:52
Absolute Basos (auto) 0.1 10^3/uL (0-0.2) 07/27/23 05:52
Immature Gran % 1.1 % (0-0.5) H 07/27/23 05:52
Neutrophils % 74.8 % (42.2-75.2) 07/27/23 05:52
Lymphocytes % 11.5 % (20.5-51.1) L 07/27/23 05:52
Monocytes % 10.1 % (1.7-9.3) H 07/27/23 05:52
Eosinophils % 1.9 % (0-6) 07/27/23 05:52
Basophils % 0.6 % (0-2) 07/27/23 05:52
Creatinine 0.7 mg/dL (0.7-1.3) 07/27/23 05:52
Vital Signs
Vital Signs
Temp Pulse Resp BP Pulse Ox
97.7 F 65 19 135/76 95
07/27/23 11:12 07/27/23 11:12 07/27/23 11:12 07/27/23 11:12 07/27/23 11:12
--- NOTE | 2023-07-27 14:46 | WOUNDNOTE ---
WON RN NOTE: Appliance changed today, Alina at bedside. Stoma is pink, slightly budded, for moderate liquid brown stool. Peristomal skin is intact, no leakage. Reviewed skin care, emptying, cutting out wafer and applying pouch. Reviewed
supply companies to order monthly supplies. and patient feel they do not need VN as they have experience with ostomy care. Called [employer] and ordered more supplies for them to take home upon discharge. Answered all questions and will follow as
needed.
[2023-07-27 15:32] VITALS: BP 147/84
--- NOTE | 2023-07-27 16:04 | WOUNDNOTE ---
WON RN NOTE ADDENDUM: Brought a sample of a [place] convex one piece drainable with filter that he can use if having leakage. Explained to patient and reason for convexity and when it would be needed. Additional supplies ordered earlier
brought to bedside. Given information regarding ostomy support groups in event patient wants to seek additional support. Enrolled in secure start program, permission given by patient.
[2023-07-27] MEDS: LOVENOX 40 MG SC (17:33)
[2023-07-27 19:00] VITALS: BP 114/71
[2023-07-27] MEDS: FLOMAX 0.400000000000000022 MG PO (21:18)
[2023-07-27 23:00] VITALS: BP 119/74
[2023-07-28 02:51] VITALS: BP 133/81
[2023-07-28 04:51] VITALS: BMI 36.7
[2023-07-28 05:11] LABS: % Basophils 0.8 % (0-2); % Eosinophils 3.4 % (0-6); % Immature Granulocytes 1.1 % (0-0.5); % Lymphocytes 16.1 % (20.5-51.1); % Monocytes 10.4 % (1.7-9.3); % Neutrophils 68.2 % (42.2-75.2); Absolute Basophils 0.1 10^3/uL (0-0.2); Absolute Eosinophils 0.3 10^3/uL (0-0.7); Absolute Immature Granulocytes 0.1 10^3/uL (0-0.05); Absolute Lymphocytes 1.4 10^3/uL (1.2-3.4); Absolute Monocytes 0.9 10^3/uL (0.1-0.6); Hematocrit 29.6 % (39.0-52.0); Hemoglobin 9.3 g/dL (13.0-18.0); Mean Corp Hgb Conc. 31.4 g/dL (33.0-37.0); Mean Corpuscular Hgb 28.9 pg (27.0-31.0); Mean Corpuscular Volume 91.9 fL (80.0-94.0); Mean Platelet Volume 8.8 fL (7.4-10.4); Nucleated Red Blood Cells % 0 % (-); Platelet Count 290 10^3/uL (130-400); Red Blood Cell Count 3.22 10^6/uL (4.70-6.10); Red Cell Dist. Width 16.5 % (11.5-14.5); White Blood Cell Count 8.8 10^3/uL (4.8-10.8)
[2023-07-28 05:40] LABS: Blood Urea Nitrogen 2 mg/dl (9-20); Calcium 8.3 mg/dl (8.4-10.2); Carbon Dioxide 30 mmol/L (22-30); Chloride 98 mmol/L (98-107); Estimated Creatinine Clearance > 125 ml/min; Glucose 101 mg/dl (70-99); Magnesium 1.6 mg/dl (1.6-2.3); Potassium 3.4 mmol/L (3.5-5.1); Sodium 133 mmol/L (135-145); eGFR > 60.00
[2023-07-28] MEDS: KCL 20 MEQ PO (06:37)
[2023-07-28 07:40] VITALS: BP 138/80
--- NOTE | 2023-07-28 08:52 | W.PN.HOSP.TC ---
Today's Communication/Plan
-
see A/P
Assessment / Plan
Assessment / Plan
A/P:
# Worsening pelvic anastomotic leak, associated with severe pain
# Sacral osteomyelitis
s/p surgery 07/21 for exploratory laparotomy and abdominoperineal resection by CRS along with cysto, bilateral ureteral stent placement by urology
Follow up MRI pelvis 07/26 noted Small amount of osteomyelitis in the coccyx. Rim-enhancing abscess centered in the right iliococcygeus muscle measuring 3.6 x 0.9 cm. Smaller probable contiguous developing abscesses in the right obturator internus
and right inferior gemellus muscles. Myositis of the bilateral piriformis muscles, the bilateral iliococcygeus muscles, and the right obturator internus and right inferior gemellus muscles. Chronic presacral collection with a drainage catheter in
place.
1 of two sets blood cultures from admission with VGS, repeat single culture from 07/24 no growth to date. Cont Abx, changed from Zosyn to Ertapenem per ID
Pt will need skilled nursing IV Abx to treat osteomyelitis
# blood tinged urine post op, resolved
Off Luna
# hypokalemia
# hypomagnesemia
replete K PO (pt did not tolerate IV due to burning)
replete Mag IV
# Reactive leucocytosis post surgery, resolved
Cont to trend WBC
# Metastatic rectal cancer s/p resection on chronic chemotherapy
# Liver mass (secondary to metastatic disease) s/p resection
Onc recc f/u with Dr. Chatterjee in early August to discuss further cancer therapy, possibly switching to oral Xeloda for maintenance
# Left renal mass status post robotic left partial nephrectomy
# Essential HTN
cont SHEEP CLIPPER toprol XL with holding parameter
# Hyponatremia
DVT ppx: Lovenox SQ
code status: full code
Dispo: PT recc HH
Anticipated Discharge: 24 - 48 hours
Subjective/Interval History
-
Date of Service: July 28, 2023
Objective Data
-
Labs:
Laboratory Results
07/28/23
04:03
WBC 8.8
Hgb 9.3 L
Hct 29.6 L
Plt Count 290
Sodium 133 L
Potassium 3.4 L
Chloride 98
Carbon Dioxide 30
BUN 2 L
Creatinine 0.5 L
Glucose 101 H
Calcium 8.3 L
Vital Signs:
Vital Signs
Temp Pulse Resp BP Pulse Ox
36.6 C 58 16 138/80 96
07/28/23 07:40 07/28/23 07:40 07/28/23 07:40 07/28/23 07:40 07/28/23 07:40
I&O
07/27/23 07/28/23 07/29/23
06:59 06:59 06:59
Intake Total 1400 / 1400 3160 / 3160
Output Total 2034 / 2034 5120 / 5120
Balance -635 / -635 -1959 / -1959
Review of Systems
-
Genitourinary: Reports Other (hematuria has resolved )
Physical Exam
-
General: Well Developed, Well Nourished, No Apparent Distress and Comfortable
HEENT: Normocephalic and Atraumatic
Respiratory: Clear to Auscultation and Non Labored Respirations; Negative Accessory Resp Muscle Use
Cardiac: Regular Rhythm and S1/S2; Negative Murmur
GI: Soft, Nontender, Nondistended, Normal Bowel Sounds, Ostomy and Other (abdominal drain )
Genito-urinary: Negative Luna
Musculoskeletal: No Clubbing, No Cyanosis and No Edema
Skin: Warm
Neuro: Awake
Psych: Calm and Intact Judgement/Insight
Data Reviewed
-
MRI: Report Reviewed by me and Discussed with Patient
Labs: Labs Reviewed by me
[2023-07-28] MEDS: PROTONIX IV 40 MG IV (09:20)
[2023-07-28] MEDS: NSS (PRESERVATIVE FREE) 10 ML IV (09:20)
[2023-07-28] MEDS: MAGNESIUM SULFATE 50 IV (09:25)
[2023-07-28] MEDS: TOPROL XL 50 MG PO (09:25)
[2023-07-28] MEDS: KCL 40 MEQ PO (09:36)
[2023-07-28 11:20] VITALS: BP 127/80
--- NOTE | 2023-07-28 11:33 | W.PN.CRS1 ---
Today's Communication / Plan
-
continue regular diet
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
antibiotics per ID
Assessment/Plan
-
58 yo male with h/o metastatic rectal cancer (following with Dr. Chatterjee for chemotherapy) with prior low anterior resection with loop ileostomy creation about 4 years ago and subsequent reversal later that year with chronic anastomotic leak over the
past 2 years previously stable but with recent worsening now�POD #6�ex lap with APR and ileostomy creation
1.� Labs normal.� Hemoglobin 9.3, which is improving.� Will watch.� WBC normalized to 8.8.� Continue antibiotics. Per ID, likely weeks of outpatient abx.
2.� Lovenox, Teds and SCDs for DVT prophylaxis.
3.� Continue CHI drain. Will remove prior to discharge.
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 Dilaudid IV PRN, oxycodone PRN.
5.� Out of bed as tolerated.
6.� Continue regular diet.
7.� OR pathology pending.
8.� Wound RN for ileostomy teaching.
9.� Appreciate hospitalist/heme onc/ID.
10. Dispo: anticipate as soon as 07/29, patient refusing VN at this time.
Subjective Data
Procedure
07/22/2023- 1) exploratory laparotomy 2) abdominoperineal resection (APR), 3) ileostomy
Subjective Data
Date of Service: July 28, 2023
Patient states his pain is improved. He slept well overnight. He denies nausea or vomiting. He ate 1 regular diet meal last night. He is urinating without difficulty.
Objective Data
-
Vital Signs
Temp Pulse Resp BP Pulse Ox
97.8 F 58 16 138/80 96
07/28/23 07:40 07/28/23 07:40 07/28/23 07:40 07/28/23 07:40 07/28/23 07:40
Intake & Output
07/27/23 07/28/23 07/29/23
06:59 06:59 06:59
Intake Total 1400 / 1400 3160 / 3160
Output Total 2034 / 2034 5120 / 5120
Balance -635 / -635 -1960 / -1959
Intake:
Oral fluids 240 / 240 2100 / 2100
IV fluids (Total) 960 / 960 480 / 480
IV piggybacks 200 / 200 580 / 580
Output:
Liquid stool amount 400 / 400
Colostomy 400 / 400
Drain Output (Total) 335 / 335 150 / 150
Right Abdomen Ashish-Powell 335 / 335 150 / 150
Urine, Voided 1700 / 1700 4570 / 4570
Lab Results
07/28/23 04:03
07/28/23 04:03
Physical Exam
-
General: No Acute Distress and AOx3
Abdomen: Soft, Non Distended and Non Tender
Skin: Warm and Dry
Wound: Dressing Changed (old dried blood, cleaned, christine in place)
Incision: Clear, Dry, Intact
[2023-07-28] MEDS: INVANZ 60 MG IV (11:42)
[2023-07-28] MEDS: NSS IV (11:43)
--- NOTE | 2023-07-28 14:27 | W.PN.ID1 ---
Date of Service
Date of Service: July 28, 2023
Today's Communication
plan long course of IV ceftriaxone and oral metronidazole
follow clinically
Assessment / Plan
Probable Osteomyelitis of the Coccyx
Small abscess - R iliococcygeus muscle, phlegmon in right obturator and R inferior gemellus
Myositis of bilateral piriformis, iliococcygeus, right obturator internus and R inferior gemellus
Pelvic Fluid Collection - chronic
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
- 1 of two sets of blood cultures from arrival with VGS, repeat single culture from 07/24 no growth to date
- send second set today
- MRI: osteomyelitis, small abscess, myositis
- ESR/CRP reviewed
- picc line
- plan a long course of IV ceftriaxone and oral metronidazole, will reassess patient with repeat MRI pelvis at 6 weeks, IV course could even be 12 weeks
- follow clinically
Hypokalemia
- management per hospitalist
Chief Complaint
-: Other (osteomyelitis, intraabdominal abscess, myositis)
Subjective / Review of Systems
afebrile
bp stable
leukocytosis resolved
L shift resolved
cr 0.5
blood cultures no growth to date
Vital Signs / Physical Exam
Vital Signs
Vital Signs
Temp Pulse Resp BP Pulse Ox
98.0 F 58 16 127/80 96
07/28/23 11:20 07/28/23 11:20 07/28/23 11:20 07/28/23 11:20 07/28/23 11:20
Physical Exam
Constitutional: No Acute Distress
Cardiovascular: Regular Rate and S1/S2; Negative Murmur or Rub
Pulmonary: Clear and Symmetric; Negative Wheezes or Rales
Gastrointestinal: Soft, Non Tender, Non Distended and Normal Bowel Sounds
Skin: Warm and Dry; Negative Rash or Jaundice
Wound: Other (dressing - moderate strike through)
Lines: Other (drain - serosanguinous)
Objective Data
Lab Data
Lab Results
07/28/23 04:03
07/28/23 04:03
ESR Cancelled 07/27/23 09:43
PT 14.6 Sec (11.4-14.6) 07/21/23 10:28
INR 1.14 07/21/23 10:28
APTT 37.1 Sec (23.4-35.0) H 07/21/23 10:28
Estimated Creat Clear > 125 ml/min 07/28/23 04:03
Lactic Acid 2.0 mmol/L (0.7-2.0) 07/21/23 10:27
Total Bilirubin 0.6 mg/dl (0.2-1.3) 07/23/23 04:06
AST 39 U/L (17-59) 07/23/23 04:06
ALT 19 U/L (0-50) 07/23/23 04:06
Alkaline Phosphatase 96 U/L (38-126) 07/23/23 04:06
C-Reactive Protein 32.80 mg/L (0.0-10.00) H 07/27/23 05:52
Most recent labs reviewed.
Micro Results:
07/21/23 10:37 Blood Culture - Final
Blood/Venous Viridans Streptococcus Group
Gram Stain - Final
07/27/23 11:21 Blood Culture - Preliminary
Blood/Venous No Growth in 24 hours- Final report to follow
07/25/23 10:16 Blood Culture - Preliminary
Blood/Venous No Growth in 72 hours- Final report to follow
07/21/23 10:28 Blood Culture - Final
Blood/Venous No Growth - Final Report
Care Review
Plan reviewed with: Physician (Dr Chatterjee - left tiger text )
[2023-07-28 15:20] VITALS: BP 125/67
--- NOTE | 2023-07-28 15:21 | PTCARENOTE ---
Patient refused to brush teeth or hygiene care this am. Patient states, 'I don't need help. I'll get up when my gets here.' Patient flat and withdrawn. Patient talks and answers questions with his eyes shut. Patient does not want blinds open or
door open. Patient did not want to eat breakfast, just sleep.
--- NOTE | 2023-07-28 15:27 | PTCARENOTE ---
Tele renewed due to amadeo 45-48 when sleeping.
--- NOTE | 2023-07-28 16:21 | PN.CDI ---
CDI
- -
CDI:
Physician Documentation Request
Admit Date: 07/21/23 11:51
Dear Migdalia Sanchez
Patient underwent exploratory laparotomy, abdominoperineal resection. OR report mentions multiple times 'colostomy' including ' ...the best option for this situation would be a permanent colostomy ....I came back to the abdomen and a colostomy
tunnel was created.....' , 'Ultimately, the colostomy was coming out a good bit, and the distal end of colostomy was trimmed with cautery, and this was sent off as portion of sigmoid as third specimen
07/23-07/27 colorectal surgery progress notes state 'POD #__ ex lap with APR and ileostomy creation'
In an attempt to clarify potentially conflicting documentation, please clarify the type of ostomy created during surgery:
Colostomy
Ileostomy
Other
Use of terms such as suspected, likely, concern for, or probable (associated with a specific diagnosis that is being evaluated, monitored, or treated as if it exists) are acceptable and can be coded in the inpatient setting, when documented at the
time of discharge.
Thank you,
Ora Mena RN, BSN
CDI Specialist
tiger text
Please use your independent medical judgment in providing your response.
--- NOTE | 2023-07-28 16:27 | CM ---
met with patient at bedside.sp apr with end colostomy.now with om of sacal area.clair drain remains.shoe trimmer dc.patient needs pen[facility]entiary iv abx.faxed clinicals and script to [facility] and left [facility] for zehra rep with [facility]. picc to be placed and
possible dc tomorrow vs wednesday.did speak with zehra and she rceived clinicals.will ask patient again if he wants vn.
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
[2023-07-28] MEDS: LOVENOX 40 MG SC (16:38)
[2023-07-28] MEDS: ROXICODONE 10 MG PO ×2 (16:38→20:33)
[2023-07-28] MEDS: FLAGYL 500 MG PO (16:38)
[2023-07-28 19:45] VITALS: BP 123/69
[2023-07-28] MEDS: FLOMAX 0.400000000000000022 MG PO (20:33)
[2023-07-29] MEDS: FLAGYL 500 MG PO ×2 (00:45→08:51)
[2023-07-29] MEDS: ROXICODONE 10 MG PO ×4 (00:45→13:24)
[2023-07-29 00:52] VITALS: BP 111/57
[2023-07-29 04:53] VITALS: BP 128/67
[2023-07-29 05:33] LABS: % Basophils 0.7 % (0-2); % Eosinophils 3.1 % (0-6); % Immature Granulocytes 1.1 % (0-0.5); % Lymphocytes 18.3 % (20.5-51.1); % Monocytes 10.8 % (1.7-9.3); Absolute Basophils 0.1 10^3/uL (0-0.2); Absolute Eosinophils 0.3 10^3/uL (0-0.7); Absolute Immature Granulocytes 0.1 10^3/uL (0-0.05); Absolute Lymphocytes 1.7 10^3/uL (1.2-3.4); Absolute Neutrophils 6.1 10^3/uL (1.4-6.5); Hematocrit 30.5 % (39.0-52.0); Hemoglobin 9.7 g/dL (13.0-18.0); Mean Corp Hgb Conc. 31.8 g/dL (33.0-37.0); Mean Corpuscular Hgb 28.7 pg (27.0-31.0); Mean Corpuscular Volume 90.2 fL (80.0-94.0); Mean Platelet Volume 8.6 fL (7.4-10.4); Nucleated Red Blood Cells % 0 % (-); Platelet Count 304 10^3/uL (130-400); Red Blood Cell Count 3.38 10^6/uL (4.70-6.10); Red Cell Dist. Width 16.4 % (11.5-14.5); White Blood Cell Count 9.2 10^3/uL (4.8-10.8)
--- NOTE | 2023-07-29 05:51 | PTCARENOTE ---
Pt did not eat any dinner last night. Prn oxycodone 10mg provided for pain control per pt request; pain 6/10 up to 8. No breakthrough IV needed. Pt up ad krys, at bedside. Pt ambulated to BR and emptied colostomy independently. CHI with
serosanguineous drainage. PICC line patent, dressing intact. Abd dressings intact, mesh panties with old bloody drainage, pt states he will change himself in BR. Tele showing SB/NSR. HR in 50s when sleeping. HR in 130s briefly while OOB. Call bryan
within reach. Pt able to make needs known.
[2023-07-29 05:55] LABS: Blood Urea Nitrogen 5 mg/dl (9-20); Calcium 8.7 mg/dl (8.4-10.2); Carbon Dioxide 27 mmol/L (22-30); Chloride 100 mmol/L (98-107); Estimated Creatinine Clearance > 125 ml/min; Glucose 102 mg/dl (70-99); Magnesium 1.5 mg/dl (1.6-2.3); Potassium 3.7 mmol/L (3.5-5.1); Sodium 133 mmol/L (135-145); eGFR > 60.00
[2023-07-29 06:00] VITALS: BMI 34.8
[2023-07-29 07:14] VITALS: BP 145/76
[2023-07-29] MEDS: MAGNESIUM SULFATE 50 IV (08:44)
[2023-07-29] MEDS: ROCEPHIN 2000 MG IV (08:46)
[2023-07-29] MEDS: STERILE WATER FOR INJECTION 20 ML IV (08:46)
[2023-07-29] MEDS: PROTONIX IV 40 MG IV (08:47)
[2023-07-29] MEDS: NSS (PRESERVATIVE FREE) 10 ML IV (08:48)
[2023-07-29] MEDS: TOPROL XL 50 MG PO (08:49)
--- NOTE | 2023-07-29 09:30 | W.PN.HOSP.TC ---
Today's Communication/Plan
-
see A/P
Assessment / Plan
Assessment / Plan
A/P:
# Worsening pelvic anastomotic leak, associated with severe pain
# Sacral osteomyelitis
s/p surgery 07/21 for exploratory laparotomy and abdominoperineal resection by CRS along with cysto, bilateral ureteral stent placement by urology
Follow up MRI pelvis 07/26 noted Small amount of osteomyelitis in the coccyx. Rim-enhancing abscess centered in the right iliococcygeus muscle measuring 3.6 x 0.9 cm. Smaller probable contiguous developing abscesses in the right obturator internus
and right inferior gemellus muscles. Myositis of the bilateral piriformis muscles, the bilateral iliococcygeus muscles, and the right obturator internus and right inferior gemellus muscles. Chronic presacral collection with a drainage catheter in
place.
1 of two sets blood cultures from admission with VGS, repeat single culture from 07/24 no growth to date.
Abx changed from Zosyn to Ertapenem per ID. Pt will need terminal system operator IV Abx to treat osteomyelitis
# blood tinged urine post op, resolved
Off Luna
# hypokalemia
# hypomagnesemia
repleted K PO (pt did not tolerate IV due to burning)
replete Mag IV again today
# Reactive leucocytosis post surgery, resolved
Cont to trend WBC
# Metastatic rectal cancer s/p resection on chronic chemotherapy
# Liver mass (secondary to metastatic disease) s/p resection
Onc recc f/u with Dr. Chatterjee in early August to discuss further cancer therapy, possibly switching to oral Xeloda for maintenance
# Left renal mass status post robotic left partial nephrectomy
# Essential HTN
cont CASE MONITOR toprol XL with holding parameter
# Hyponatremia
DVT ppx: Lovenox SQ
code status: full code
Dispo: PT recc HH
Anticipated Discharge: Within 24 hours
Subjective/Interval History
-
Date of Service: July 29, 2023
Objective Data
-
Labs:
Laboratory Results
07/29/23
05:00
WBC 9.2
Hgb 9.7 L
Hct 30.5 L
Plt Count 304
Sodium 133 L
Potassium 3.7
Chloride 100
Carbon Dioxide 27
BUN 5 L
Creatinine 0.5 L
Glucose 102 H
Calcium 8.7
Vital Signs:
Vital Signs
Temp Pulse Resp BP Pulse Ox
36.6 C 87 19 145/76 96
07/29/23 07:14 07/29/23 08:49 07/29/23 07:14 07/29/23 08:49 07/29/23 07:14
I&O
07/28/23 07/29/23 07/30/23
06:59 06:59 06:59
Intake Total 3160 / 3160 1290 / 1290
Output Total 5120 / 5120 1610 / 1610
Balance -1960 / -1960 -320 / -320
Review of Systems
-
Genitourinary: Reports Other (hematuria has resolved )
Physical Exam
-
General: Well Developed, Well Nourished, No Apparent Distress, Comfortable and Conversant
HEENT: Normocephalic and Atraumatic
Respiratory: Clear to Auscultation and Non Labored Respirations; Negative Accessory Resp Muscle Use
Cardiac: Regular Rhythm and S1/S2; Negative Murmur
GI: Soft, Nontender, Nondistended, Normal Bowel Sounds, Ostomy and Other (abdominal drain )
Genito-urinary: Negative Luna
Musculoskeletal: No Clubbing, No Cyanosis and No Edema
Skin: Warm
Neuro: Awake
Psych: Calm and Intact Judgement/Insight
Data Reviewed
-
MRI: Report Reviewed by me and Discussed with Patient
Labs: Labs Reviewed by me
--- NOTE | 2023-07-29 10:19 | W.PN.CRS1 ---
Addendum entered and electronically signed by Migdalia Sanchez PA-C 08/09/23 14:43:
Of note, the patient has a 'colostomy', not ileostomy
Original Note:
Today's Communication / Plan
-
doing well
?dispo later today
Assessment/Plan
-
58 yo male with h/o metastatic rectal cancer (following with Dr. Chatterjee for chemotherapy) with prior low anterior resection with loop ileostomy creation about 4 years ago and subsequent reversal later that year with chronic anastomotic leak over the
past 2 years previously stable but with recent worsening now�POD #6�ex lap with APR and ileostomy creation
1.� Labs normal.� Hemoglobin 9.7, which is improving.�WBC normalized 9.2.� Continue antibiotics. Per ID, likely weeks of outpatient abx.
2.� Lovenox, Teds and SCDs for DVT prophylaxis.
3.� Continue CLAIR drain. Will discuss with Dr. Rivera regarding removal.
4.� Pain control: Dilaudid IV PRN, oxycodone PRN.
5.� Out of bed as tolerated.
6.� Continue regular diet.
7.� OR pathology pending.
8.� Wound RN for ileostomy teaching.
9.� Appreciate hospitalist/heme onc/ID.
10. Dispo: patient is doing well from our perspective. I have reached out to ID/med service regarding discharge. Home IV infusions being set up. Discussed diet, activity, and follow up instructions with patient and .
Subjective Data
Procedure
07/22/2023- 1) exploratory laparotomy 2) abdominoperineal resection (APR), 3) ileostomy
Subjective Data
Date of Service: July 29, 2023
Patient states he is urinating without difficulty. His colostomy has function. His pain has much improved. He has no nausea or vomiting.
Objective Data
-
Vital Signs
Temp Pulse Resp BP Pulse Ox
97.9 F 87 19 145/76 96
07/29/23 07:14 07/29/23 08:49 07/29/23 07:14 07/29/23 08:49 07/29/23 07:14
Intake & Output
07/28/23 07/29/23 07/30/23
06:59 06:59 06:59
Intake Total 3160 / 3160 1290 / 1290
Output Total 5120 / 5120 1610 / 1610
Balance -1960 / -1960 -320 / -320
Intake:
Oral fluids 2100 / 2100 960 / 960
IV fluids (Total) 480 / 480 240 / 240
IV piggybacks 580 / 580 90 / 90
Output:
Liquid stool amount 400 / 400 125 / 125
Colostomy 400 / 400 125 / 125
Drain Output (Total) 150 / 150 35 / 35
Right Abdomen Ashish-Powell 150 / 150 35 / 35
Urine, Voided 4570 / 4570 1450 / 1450
Other:
Number of approximated MODERATE 3
amounts of urine
Lab Results
07/29/23 05:00
07/29/23 05:00
Physical Exam
-
General: No Acute Distress and AOx3
Abdomen: Soft, Non Distended, Non Tender and Other (colostomy warm and pink with function, clair drain serous)
Wound: Dressing Changed
Incision: Clear, Dry, Intact
[2023-07-29 11:14] VITALS: BP 140/81
--- NOTE | 2023-07-29 13:59 | CM ---
patient is stable for discharge home on iv abx.called zehra at [facility].patient is covered 100% for his iv abx.zehra able to come to hospital for patient teaching at 2pm.spoke with patient again and offered a vn for colostomy teaching but he has
again declined. plan is to remove the drain before patient is dc.attending aware that patient should be able to be discharged today after seen by [facility]..start of care will be tomorrow.faxed lab work to [facility] as requested.
--- NOTE | 2023-07-29 14:39 | W.DS.TRANS ---
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
-
Discharge Instructions:
Discharge Diagnosis/Procedures ex lap with APR and ileostomy creation
Diet Low Residue
Additional Diets Continue low residue diet until your appointment
with Dr. Rivera
Activity No strenuous activity
Additional Activity No lifting over 10lbs (gallon of mlik)
Driving Restrictions Not until seen by your Dr
Bathing Restrictions OK to Shower
Wound Care Cover wound with 4x4 gauze and tape to prevent
clothing. Okay to leave open to air when stops
leaking. Okay to shower with gauze off, allow
water to run over wound. Cover drain site with
4x4 gauze and tape until it seals (usually about
5-7 days). No will be removed at your post
op appointment.
Instructions: Low Fiber Diet
Stand-Alone Forms:
Changes to Home Medications: Yes
Discharge Medications:
DC Medications w/original date entered in [employer]
metoprolol succinate 50 mg tablet,extended release 24 hr 50 mg PO DAILY Heart disease/condition 01/21/21
oxycodone-acetaminophen 5 mg-325 mg tablet (Percocet) 1 tab PO Q6H PRN severe pain #7 tabs 07/17/23
ibuprofen 200 mg tablet (Motrin IB) 400 mg PO TIDPRN PRN mild pain 07/21/23
naproxen sodium 220 mg tablet (Aleve) 440 mg PO TIDPRN PRN mild pain 07/21/23
therapeutic multivitamin 1 tab PO DAILY Supplement 07/21/23
ceftriaxone 2 gram solution for injection 2,000 mg IV Q24H Infection #25 ea 07/29/23
metronidazole 500 mg tablet 500 mg PO Q8 Infection #20 tabs 07/29/23
oxycodone 5 mg tablet 5 mg PO Q6H PRN pain #20 tabs 07/29/23
Home Medication Changes
ceftriaxone 2 gram solution for injection 2,000 mg IV Q24H Infection #25 ea 07/29/23
metronidazole 500 mg tablet 500 mg PO Q8 Infection #20 tabs 07/29/23
oxycodone 5 mg tablet 5 mg PO Q6H PRN pain #20 tabs 07/29/23
Pending Results: Yes
Additional Pending Results:
blood cultures
[2023-07-29 14:57] VITALS: BP 155/83
--- NOTE | 2023-07-29 17:03 | W.PN.ID1 ---
Date of Service
Date of Service: July 29, 2023
Today's Communication
- MRI: osteomyelitis, small abscess, myositis
- picc line
- plan a long course of IV ceftriaxone and oral metronidazole, will reassess patient with repeat MRI pelvis at 6 weeks, IV course could even be 12 weeks
Assessment / Plan
Probable Osteomyelitis of the Coccyx
Small abscess - R iliococcygeus muscle, phlegmon in right obturator and R inferior gemellus
Myositis of bilateral piriformis, iliococcygeus, right obturator internus and R inferior gemellus
Pelvic Fluid Collection - chronic
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
- repeat blood cultures no growth to date
- MRI: osteomyelitis, small abscess, myositis
- picc line
- plan a long course of IV ceftriaxone and oral metronidazole, will reassess patient with repeat MRI pelvis at 6 weeks, IV course could even be 12 weeks
- follow clinically
Chief Complaint
-: Other (osteomyelitis, intraabdominal abscess, myositis)
Subjective / Review of Systems
afebrile
bp stable
without leukocytosis, cr stable
drain was removed
tolerating current antibiotics
Vital Signs / Physical Exam
Vital Signs
Vital Signs
Temp Pulse Resp BP Pulse Ox
97.7 F 84 19 155/83 98
07/29/23 14:57 07/29/23 14:57 07/29/23 14:57 07/29/23 14:57 07/29/23 14:57
Physical Exam
Constitutional: No Acute Distress
Cardiovascular: Regular Rate and S1/S2; Negative Murmur or Rub
Pulmonary: Clear and Symmetric; Negative Wheezes or Rales
Gastrointestinal: Soft, Non Tender, Distended, Non Distended and Normal Bowel Sounds
Skin: Warm and Dry; Negative Rash or Jaundice
Wound: Other (dressing clean, dry, intact)
Objective Data
Lab Data
Lab Results
07/29/23 05:00
07/29/23 05:00
ESR Cancelled 07/27/23 09:43
PT 14.6 Sec (11.4-14.6) 07/21/23 10:28
INR 1.14 07/21/23 10:28
APTT 37.1 Sec (23.4-35.0) H 07/21/23 10:28
Estimated Creat Clear > 125 ml/min 07/29/23 05:00
Lactic Acid 2.0 mmol/L (0.7-2.0) 07/21/23 10:27
Total Bilirubin 0.6 mg/dl (0.2-1.3) 07/23/23 04:06
AST 39 U/L (17-59) 07/23/23 04:06
ALT 19 U/L (0-50) 07/23/23 04:06
Alkaline Phosphatase 96 U/L (38-126) 07/23/23 04:06
C-Reactive Protein 32.80 mg/L (0.0-10.00) H 07/27/23 05:52
Most recent labs reviewed.
Micro Results:
07/27/23 11:21 Blood Culture - Preliminary
Blood/Venous No Growth in 48 hours- Final report to follow
07/25/23 10:16 Blood Culture - Preliminary
Blood/Venous No Growth in 4 days- Final report to follow
07/21/23 10:37 Blood Culture - Final
Blood/Venous Viridans Streptococcus Group
Gram Stain - Final
07/21/23 10:28 Blood Culture - Final
Blood/Venous No Growth - Final Report
Care Review
Plan reviewed with: Other Provider (JESUS blake - abx)
--- NOTE | 2023-08-18 10:47 | W.DCSUMMARY ---
Discharge Summary
Discharge Data
Date of Admission: 07/21/23
Date of Discharge: 07/29/23
-
Pending Results: Yes
Additional Pending Results:
Blood cultures
Hospital Course
58-year-old male with a history of low-lying rectal cancer that was treated with neoadjuvant chemoradiation and a low anterior resection with loop ileostomy about [address] Rivera. 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
underwent a partial hepatectomy. He also had a known contained anastomotic leak in his pelvis which was described radiographically about 2 years ago. It has been stable on imaging. A few weeks ago he was having pelvic and right buttock pain which
radiated to his right knee and has been debilitating. Dr. Rivera performed a flexible sigmoidoscopy due to the complaints to better evaluate the anastomosis. It was performed earlier in the day as a scheduled outpatient which showed a sizable
anastomotic defect. Based on this the patient was sent to the ER and was admitted. The patient underwent an exploratory laparotomy and abdominoperineal resection by Dr. Billy Rivera with [employer] Dr. Jean Carlos Goodwin on 07/22/2023. He had
stents placed in the ureters before the case and 1 was removed after surgery. The second 1 was removed the following day. The patient had a drain that was placed in the operating room. He was sent to IMU and placed on antibiotics and his white
count was 49. The following day he was tachycardic but normotensive. His white count went down to 30.6. On postop day 3 he was started on a clear liquid diet. His hemoglobin was trending down and he was transfused with 1 unit of packed red blood
cells. His Luna was removed and he voided without difficulty. On postop day 4 his diet was advanced to full liquids and the day after that he was started on a regular diet. Wound RN has been consulted for ileostomy teaching. On postop day 7 the
patient's pain was controlled. He was switched to oxycodone. ID has been consulted for antibiotic management and home infusion IV antibiotics were set up. The [facility] drain was removed prior to discharge. He was to follow-up with Dr. Rivera in 2
weeks from discharge. All discharge instructions were discussed with the family and patient. All questions answered.
Discharge Plan
-
Patient Disposition: Home (Routine Discharge)
Discharge Diagnosis/Procedures: ex lap with APR and ileostomy creation
Condition: Good
Diet: Low Residue
Additional Diets: Continue low residue diet until your appointment with Dr. Rivera
Activity: No strenuous activity
Additional Activity: No lifting over 10lbs (gallon of mlik)
Driving Restrictions: Not until seen by your Dr
Bathing Restrictions: OK to Shower
Wound Care: Cover wound with 4x4 gauze and tape to prevent clothing. Okay to leave open to air when stops leaking. Okay to shower with gauze off, allow water to run over wound. Cover drain site with 4x4 gauze and tape until it seals (usually about
5-7 days). [place] will be removed at your post op appointment.
Activity Restrictions/Additional Instructions:
change appliance q 3-4 days or if leakage
[place] wafer # [id number] [place] pouch # [id number]
Call supply company (list in folder provided) for monthly Ostomy supplies after discharge (ask VN to order supplies while on service).
Follow up with surgeon.
Call [facility] RN nurse for ostomy pouching concerns or leakage problems [phone] or [phone] or [phone].
Instructions: Low Fiber Diet
Referrals:
Billy Rivera MD [Active] - in two weeks
Nicole Liriano DO [Family Provider] -
Prescriptions:
New
oxycodone 5 mg tablet
5 mg PO Q6H PRN (Reason: pain) Qty: 20 0RF
ceftriaxone 2 gram Recon Soln
2,000 mg IV Q24H Qty: 25 0RF
metronidazole 500 mg Tablet
500 mg PO Q8 Qty: 20 0RF
metronidazole 500 mg tablet
500 mg PO TID 30 Days Qty: 90 1RF
Continued
metoprolol succinate 50 MG tablet extended release 24 hr
50 mg PO DAILY
oxycodone-acetaminophen [Percocet] 5-325 mg tablet
1 tab PO Q6H PRN (Reason: severe pain) Qty: 7 0RF
Patient Comments:
07/21/2023, pt. filled this med. on 07/19/2023 for 28 tablets per PDMP.
therapeutic multivitamin Tablet
1 tab PO DAILY
naproxen sodium [Aleve] 220 mg Tablet
440 mg PO TIDPRN PRN (Reason: mild pain)
ibuprofen [Motrin IB] 200 mg Tablet
400 mg PO TIDPRN PRN (Reason: mild pain)
Discharge Orders:
Discharge Patient (As Directed); Ordered 07/29/23
Ordered By: Migdalia Sanchez
Discharge Date and Time
Discharge Date/Time: 07/29/23 17:29
Print Language: SWEDISH
== END 2023-07-29 17:29 | disposition home or self-care (01) | DRG 330 ==
LOC: 2 SOUTH 11:51
PROVIDERS: Internal Medicine; Physician Assistant; Surgery; ADMITTING PHYSICIAN Surgery; CONSULT PHYSICIAN Internal Medicine; CONSULT PHYSICIAN Student in an Organized Health Care Education/Training Program; EMERGENCY PHYSICIAN Emergency Medicine; FAMILY PHYSICIAN Family Medicine; OTHER PHYSICIAN Internal Medicine Hematology & Oncology
PROC: 0D1N074 Bypass Sigmoid Colon to Cutaneous with Autologous Tissue Substitute, Open Approach (ICD-10-PCS; 2023-07-22)
PROC: 0DTP0ZZ Resection of Rectum, Open Approach (ICD-10-PCS; 2023-07-22)
PROC: 0DBN0ZZ Excision of Sigmoid Colon, Open Approach (ICD-10-PCS; 2023-07-22)
PROC: 0DTQ0ZZ Resection of Anus, Open Approach (ICD-10-PCS; 2023-07-22)
PROC: 0T788DZ Dilation of Bilateral Ureters with Intraluminal Device, Via Natural or Artificial Opening Endoscopic (ICD-10-PCS; 2023-07-22)
DX: K91.89 Other postprocedural complications and disorders of digestive system (principal); C20 Malignant neoplasm of rectum; C78.7 Secondary malignant neoplasm of liver and intrahepatic bile duct; D62 Acute posthemorrhagic anemia; E87.1 Hypo-osmolality and hyponatremia; T81.32XA Disruption of internal operation (surgical) wound, not elsewhere classified, initial encounter; Z85.048 Personal history of other malignant neoplasm of rectum, rectosigmoid junction, and anus; M53.3 Sacrococcygeal disorders, not elsewhere classified; E87.6 Hypokalemia; I10 Essential (primary) hypertension; E83.42 Hypomagnesemia; K62.89 Other specified diseases of anus and rectum; Y83.2 Surgical operation with anastomosis, bypass or graft as the cause of abnormal reaction of the patient, or of later complication, without mention of misadventure at the time of the procedure; Z80.0 Family history of malignant neoplasm of digestive organs; Z85.528 Personal history of other malignant neoplasm of kidney; Z90.5 Acquired absence of kidney; Z92.21 Personal history of antineoplastic chemotherapy; Z93.3 Colostomy status
CPT/HCPCS: 88307; 71045; 72197; 80048; 80053; 83605; 83735; 85014; 85018; 85025; 85610; 85652; 85730; 86140; 86850; 86900; 86901; 86920; 87040; 87205; 93971; 96361; 96374; 96375; 96376; 97116; 97162; 99284; A9575; J1335; P9016

== ENCOUNTER → 2023-09-09 09:54 | Outpatient (REF) | payer OTHER, SELFPAY | LOC: HWRAD 09:54 | PROVIDERS: ATTENDING PHYSICIAN Internal Medicine Hematology & Oncology; FAMILY PHYSICIAN Family Medicine | DX: C19 Malignant neoplasm of rectosigmoid junction (principal); C64.9 Malignant neoplasm of unspecified kidney, except renal pelvis; C78.7 Secondary malignant neoplasm of liver and intrahepatic bile duct | CPT/HCPCS: 71260; 74177; Q9967 ==

== ENCOUNTER → 2023-12-15 11:09 | Outpatient (REF) | payer OTHER, SELFPAY | LOC: HWRAD 11:09 | PROVIDERS: ATTENDING PHYSICIAN Internal Medicine Hematology & Oncology; FAMILY PHYSICIAN Family Medicine | DX: C19 Malignant neoplasm of rectosigmoid junction (principal); C64.2 Malignant neoplasm of left kidney, except renal pelvis; C78.7 Secondary malignant neoplasm of liver and intrahepatic bile duct; D50.9 Iron deficiency anemia, unspecified; Z93.2 Ileostomy status | CPT/HCPCS: 71260; 74177; Q9967 ==

== ENCOUNTER → 2024-03-27 11:51 | Outpatient (REF) | payer OTHER, SELFPAY | LOC: HWRAD 11:51 | PROVIDERS: ATTENDING PHYSICIAN Internal Medicine Hematology & Oncology; FAMILY PHYSICIAN Family Medicine | DX: C19 Malignant neoplasm of rectosigmoid junction (principal); C64.2 Malignant neoplasm of left kidney, except renal pelvis; C78.7 Secondary malignant neoplasm of liver and intrahepatic bile duct; D50.9 Iron deficiency anemia, unspecified; Z93.2 Ileostomy status | CPT/HCPCS: 71260; 74177; Q9967 ==

== ENCOUNTER → 2024-04-17 12:17 | Outpatient (REF) | payer OTHER, SELFPAY ==
[2024-04-17 09:11] LABS: % Basophils 1.4 % (0-2); % Eosinophils 3.4 % (0-6); % Immature Granulocytes 1.4 % (0-0.5); % Lymphocytes 20.4 % (20.5-51.1); % Monocytes 7.5 % (1.7-9.3); % Neutrophils 65.9 % (42.2-75.2); Absolute Basophils 0.1 10^3/uL (0-0.2); Absolute Eosinophils 0.2 10^3/uL (0-0.7); Absolute Immature Granulocytes 0.1 10^3/uL (0-0.05); Absolute Lymphocytes 1.3 10^3/uL (1.2-3.4); Absolute Monocytes 0.5 10^3/uL (0.1-0.6); Absolute Neutrophils 4.3 10^3/uL (1.4-6.5); Hemoglobin 15.5 g/dL (13.0-18.0); Mean Corp Hgb Conc. 35.2 g/dL (33.0-37.0); Mean Corpuscular Volume 96.5 fL (80.0-94.0); Mean Platelet Volume 9.1 fL (7.4-10.4); Nucleated Red Blood Cells % 0 % (-); Platelet Count 154 10^3/uL (130-400); Red Blood Cell Count 4.56 10^6/uL (4.70-6.10); Red Cell Dist. Width 14.5 % (11.5-14.5); White Blood Cell Count 6.5 10^3/uL (4.8-10.8)
[2024-04-17 09:19] LABS: AST (SGOT) 81 U/L (17-59); Albumin 4.5 g/dl (3.5-5.0); Alkaline Phosphatase 149 U/L (38-126); Blood Urea Nitrogen 5 mg/dl (9-20); Calcium 8.6 mg/dl (8.4-10.2); Carbon Dioxide 28 mmol/L (22-30); Chloride 94 mmol/L (98-107); Glucose 185 mg/dl (70-99); Potassium 3.1 mmol/L (3.5-5.1); Sodium 137 mmol/L (135-145); Total Bilirubin 0.5 mg/dl (0.2-1.3); Total Protein 7.4 g/dl (6.3-8.2); eGFR > 60.00
[2024-04-17 09:32] LABS: ALT (SGPT) 72 U/L (0-50)
== END ==
LOC: OIDL 12:17
PROVIDERS: ATTENDING PHYSICIAN Internal Medicine Hematology & Oncology
DX: C19 Malignant neoplasm of rectosigmoid junction (principal)
CPT/HCPCS: 80053; 85025

== ENCOUNTER → 2024-05-15 10:48 | Outpatient (REF) | payer OTHER, SELFPAY ==
[2024-05-15 11:10] LABS: % Basophils 0.6 % (0-2); % Eosinophils 1.6 % (0-6); % Immature Granulocytes 0.2 % (0-0.5); % Lymphocytes 9.4 % (20.5-51.1); % Monocytes 7.2 % (1.7-9.3); Absolute Basophils 0.1 10^3/uL (0-0.2); Absolute Eosinophils 0.2 10^3/uL (0-0.7); Absolute Monocytes 0.7 10^3/uL (0.1-0.6); Absolute Neutrophils 8.4 10^3/uL (1.4-6.5); Hematocrit 44.2 % (39.0-52.0); Mean Corp Hgb Conc. 33.9 g/dL (33.0-37.0); Mean Corpuscular Hgb 33.3 pg (27.0-31.0); Mean Platelet Volume 8.5 fL (7.4-10.4); Platelet Count 194 10^3/uL (130-400); Red Blood Cell Count 4.51 10^6/uL (4.70-6.10); White Blood Cell Count 10.3 10^3/uL (4.8-10.8)
[2024-05-15 12:08] LABS: ALT (SGPT) 58 U/L (0-50); AST (SGOT) 86 U/L (17-59); Albumin 4.5 g/dl (3.5-5.0); Alkaline Phosphatase 125 U/L (38-126); Blood Urea Nitrogen 7 mg/dl (9-20); Calcium 8.9 mg/dl (8.4-10.2); Carbon Dioxide 22 mmol/L (22-30); Chloride 98 mmol/L (98-107); Glucose 139 mg/dl (70-99); Sodium 136 mmol/L (135-145); Total Bilirubin 0.6 mg/dl (0.2-1.3); Total Protein 7.4 g/dl (6.3-8.2); eGFR > 60.00
== END ==
LOC: OIDL 10:48
PROVIDERS: ATTENDING PHYSICIAN Internal Medicine Hematology & Oncology; FAMILY PHYSICIAN Family Medicine
DX: C19 Malignant neoplasm of rectosigmoid junction (principal)
CPT/HCPCS: 36415; 80053; 85025

== ENCOUNTER 2024-05-29 11:30 | Outpatient (RCR) | payer OTHER, SELFPAY ==
[2024-05-29 12:26] LABS: % Basophils 0.4 % (0-2); % Eosinophils 1.4 % (0-6); % Immature Granulocytes 0.5 % (0-0.5); % Lymphocytes 12.1 % (20.5-51.1); % Monocytes 6.6 % (1.7-9.3); Absolute Eosinophils 0.2 10^3/uL (0-0.7); Absolute Immature Granulocytes 0.1 10^3/uL (0-0.05); Absolute Lymphocytes 1.3 10^3/uL (1.2-3.4); Absolute Monocytes 0.7 10^3/uL (0.1-0.6); Absolute Neutrophils 8.4 10^3/uL (1.4-6.5); Hematocrit 45.1 % (39.0-52.0); Hemoglobin 15.3 g/dL (13.0-18.0); Mean Corp Hgb Conc. 33.9 g/dL (33.0-37.0); Mean Corpuscular Hgb 33.4 pg (27.0-31.0); Mean Corpuscular Volume 98.5 fL (80.0-94.0); Mean Platelet Volume 8.8 fL (7.4-10.4); Platelet Count 132 10^3/uL (130-400); Red Blood Cell Count 4.58 10^6/uL (4.70-6.10); Red Cell Dist. Width 12.9 % (11.5-14.5); White Blood Cell Count 10.7 10^3/uL (4.8-10.8)
[2024-05-29 13:22] LABS: Magnesium 1.6 mg/dl (1.6-2.3)
[2024-05-29 13:23] LABS: ALT (SGPT) 64 U/L (0-50); AST (SGOT) 86 U/L (17-59); Albumin 4.4 g/dl (3.5-5.0); Alkaline Phosphatase 139 U/L (38-126); Blood Urea Nitrogen 3 mg/dl (9-20); Calcium 9.3 mg/dl (8.4-10.2); Carbon Dioxide 21 mmol/L (22-30); Chloride 97 mmol/L (98-107); Glucose 143 mg/dl (70-99); Potassium 3.3 mmol/L (3.5-5.1); Sodium 135 mmol/L (135-145); Total Bilirubin 0.4 mg/dl (0.2-1.3); Total Protein 7.4 g/dl (6.3-8.2); eGFR > 60.00
== END 2024-06-09 23:59 | disposition home or self-care (01) ==
LOC: OID 11:30
PROVIDERS: ATTENDING PHYSICIAN Internal Medicine Hematology & Oncology; FAMILY PHYSICIAN Family Medicine
DX: C19 Malignant neoplasm of rectosigmoid junction (principal); C64.2 Malignant neoplasm of left kidney, except renal pelvis; C78.7 Secondary malignant neoplasm of liver and intrahepatic bile duct; D50.9 Iron deficiency anemia, unspecified; Z93.2 Ileostomy status
CPT/HCPCS: 36415; 80053; 83735; 85025

== ENCOUNTER → 2024-06-12 13:02 | Outpatient (REF) | payer OTHER, SELFPAY ==
[2024-06-12 12:51] LABS: % Basophils 0.4 % (0-2); % Immature Granulocytes 0.5 % (0-0.5); % Lymphocytes 12.1 % (20.5-51.1); % Monocytes 7.3 % (1.7-9.3); % Neutrophils 78.7 % (42.2-75.2); Absolute Eosinophils 0.1 10^3/uL (0-0.7); Absolute Immature Granulocytes 0.1 10^3/uL (0-0.05); Absolute Lymphocytes 1.3 10^3/uL (1.2-3.4); Absolute Monocytes 0.8 10^3/uL (0.1-0.6); Absolute Neutrophils 8.6 10^3/uL (1.4-6.5); Hematocrit 49.4 % (39.0-52.0); Hemoglobin 16.3 g/dL (13.0-18.0); Mean Corpuscular Hgb 33.1 pg (27.0-31.0); Mean Corpuscular Volume 100.2 fL (80.0-94.0); Platelet Count 154 10^3/uL (130-400); Red Blood Cell Count 4.93 10^6/uL (4.70-6.10); White Blood Cell Count 10.9 10^3/uL (4.8-10.8)
[2024-06-12 13:51] LABS: ALT (SGPT) 59 U/L (0-50); AST (SGOT) 78 U/L (17-59); Albumin 4.7 g/dl (3.5-5.0); Alkaline Phosphatase 160 U/L (38-126); Blood Urea Nitrogen 5 mg/dl (9-20); Calcium 8.9 mg/dl (8.4-10.2); Carbon Dioxide 26 mmol/L (22-30); Chloride 92 mmol/L (98-107); Glucose 127 mg/dl (70-99); Potassium 3.1 mmol/L (3.5-5.1); Sodium 134 mmol/L (135-145); Total Bilirubin 0.7 mg/dl (0.2-1.3); Total Protein 7.5 g/dl (6.3-8.2); eGFR > 60.00
== END ==
LOC: OIDL 13:02
PROVIDERS: ATTENDING PHYSICIAN Internal Medicine Hematology & Oncology; FAMILY PHYSICIAN Family Medicine
DX: C19 Malignant neoplasm of rectosigmoid junction (principal); C64.2 Malignant neoplasm of left kidney, except renal pelvis; C78.7 Secondary malignant neoplasm of liver and intrahepatic bile duct; D50.9 Iron deficiency anemia, unspecified; Z93.2 Ileostomy status
CPT/HCPCS: 80053; 85025

== ENCOUNTER → 2024-06-26 09:23 | Outpatient (REF) | payer OTHER, SELFPAY ==
[2024-06-26 09:42] LABS: % Basophils 0.5 % (0-2); % Eosinophils 0.6 % (0-6); % Immature Granulocytes 0.7 % (0-0.5); % Lymphocytes 11.4 % (20.5-51.1); % Monocytes 7.9 % (1.7-9.3); % Neutrophils 78.9 % (42.2-75.2); Absolute Basophils 0.1 10^3/uL (0-0.2); Absolute Eosinophils 0.1 10^3/uL (0-0.7); Absolute Immature Granulocytes 0.1 10^3/uL (0-0.05); Absolute Lymphocytes 1.2 10^3/uL (1.2-3.4); Absolute Monocytes 0.9 10^3/uL (0.1-0.6); Absolute Neutrophils 8.5 10^3/uL (1.4-6.5); Hematocrit 50.5 % (39.0-52.0); Hemoglobin 17.3 g/dL (13.0-18.0); Mean Corp Hgb Conc. 34.3 g/dL (33.0-37.0); Mean Corpuscular Hgb 33.5 pg (27.0-31.0); Mean Corpuscular Volume 97.7 fL (80.0-94.0); Mean Platelet Volume 8.8 fL (7.4-10.4); Platelet Count 143 10^3/uL (130-400); Red Blood Cell Count 5.17 10^6/uL (4.70-6.10); Red Cell Dist. Width 13.3 % (11.5-14.5); White Blood Cell Count 10.8 10^3/uL (4.8-10.8)
[2024-06-26 10:55] LABS: ALT (SGPT) 59 U/L (0-50); AST (SGOT) 92 U/L (17-59); Albumin 4.3 g/dl (3.5-5.0); Alkaline Phosphatase 188 U/L (38-126); Blood Urea Nitrogen 3 mg/dl (9-20); Calcium 9.5 mg/dl (8.4-10.2); Carbon Dioxide 24 mmol/L (22-30); Chloride 92 mmol/L (98-107); Glucose 177 mg/dl (70-99); Potassium 3.1 mmol/L (3.5-5.1); Sodium 135 mmol/L (135-145); Total Bilirubin 0.7 mg/dl (0.2-1.3); Total Protein 7.5 g/dl (6.3-8.2); eGFR > 60.00
== END ==
LOC: OIDL 09:23
PROVIDERS: ATTENDING PHYSICIAN Internal Medicine Hematology & Oncology; FAMILY PHYSICIAN Family Medicine
DX: C19 Malignant neoplasm of rectosigmoid junction (principal)
CPT/HCPCS: 36415; 80053; 85025

== ENCOUNTER → 2024-06-28 15:40 | Outpatient (REF) | payer OTHER, SELFPAY ==
[2024-06-28 11:01] LABS: Magnesium 1.6 mg/dl (1.6-2.3)
== END ==
LOC: OIDL 15:40
PROVIDERS: ATTENDING PHYSICIAN Internal Medicine Hematology & Oncology
DX: C19 Malignant neoplasm of rectosigmoid junction (principal); C64.2 Malignant neoplasm of left kidney, except renal pelvis; C78.7 Secondary malignant neoplasm of liver and intrahepatic bile duct; D50.9 Iron deficiency anemia, unspecified; Z93.2 Ileostomy status
CPT/HCPCS: 83735

== ENCOUNTER → 2024-07-10 16:12 | Outpatient (REF) | payer OTHER, SELFPAY ==
[2024-07-10 10:18] LABS: % Basophils 0.3 % (0-2); % Eosinophils 0.5 % (0-6); % Immature Granulocytes 0.7 % (0-0.5); % Lymphocytes 11.7 % (20.5-51.1); % Monocytes 5.4 % (1.7-9.3); % Neutrophils 81.4 % (42.2-75.2); Absolute Eosinophils 0.1 10^3/uL (0-0.7); Absolute Immature Granulocytes 0.1 10^3/uL (0-0.05); Absolute Lymphocytes 1.8 10^3/uL (1.2-3.4); Absolute Monocytes 0.8 10^3/uL (0.1-0.6); Absolute Neutrophils 12.4 10^3/uL (1.4-6.5); Hematocrit 51.6 % (39.0-52.0); Hemoglobin 17.2 g/dL (13.0-18.0); Mean Corp Hgb Conc. 33.3 g/dL (33.0-37.0); Mean Platelet Volume 8.7 fL (7.4-10.4); Platelet Count 180 10^3/uL (130-400); Red Blood Cell Count 5.21 10^6/uL (4.70-6.10); Red Cell Dist. Width 13.8 % (11.5-14.5); White Blood Cell Count 15.2 10^3/uL (4.8-10.8)
[2024-07-10 11:12] LABS: ALT (SGPT) 106 U/L (0-50); AST (SGOT) 211 U/L (17-59); Albumin 4.3 g/dl (3.5-5.0); Alkaline Phosphatase 189 U/L (38-126); Blood Urea Nitrogen 10 mg/dl (9-20); Calcium 9.6 mg/dl (8.4-10.2); Carbon Dioxide 22 mmol/L (22-30); Chloride 100 mmol/L (98-107); Glucose 132 mg/dl (70-99); Potassium 3.6 mmol/L (3.5-5.1); Sodium 137 mmol/L (135-145); Total Bilirubin 0.8 mg/dl (0.2-1.3); Total Protein 7.4 g/dl (6.3-8.2); eGFR > 60.00
== END ==
LOC: OIDL 16:12
PROVIDERS: ATTENDING PHYSICIAN Internal Medicine Hematology & Oncology
DX: C19 Malignant neoplasm of rectosigmoid junction (principal)
CPT/HCPCS: 80053; 83735; 85025

== ENCOUNTER → 2024-08-04 12:06 | Outpatient (REF) | payer OTHER, SELFPAY | LOC: RAD 12:06 | PROVIDERS: ATTENDING PHYSICIAN Internal Medicine Hematology & Oncology; FAMILY PHYSICIAN Family Medicine | DX: C19 Malignant neoplasm of rectosigmoid junction (principal); C64.2 Malignant neoplasm of left kidney, except renal pelvis; C78.7 Secondary malignant neoplasm of liver and intrahepatic bile duct; D50.9 Iron deficiency anemia, unspecified; Z93.2 Ileostomy status | CPT/HCPCS: 71260; 74177; Q9967 ==

== ENCOUNTER → 2024-08-07 10:54 | Outpatient (REF) | payer OTHER, SELFPAY ==
[2024-08-07 11:06] LABS: % Basophils 0.3 % (0-2); % Eosinophils 0.6 % (0-6); % Immature Granulocytes 0.2 % (0-0.5); % Lymphocytes 14.5 % (20.5-51.1); % Monocytes 9.9 % (1.7-9.3); % Neutrophils 74.5 % (42.2-75.2); Absolute Eosinophils 0.1 10^3/uL (0-0.7); Absolute Lymphocytes 1.3 10^3/uL (1.2-3.4); Absolute Monocytes 0.9 10^3/uL (0.1-0.6); Absolute Neutrophils 6.7 10^3/uL (1.4-6.5); Hematocrit 49.4 % (39.0-52.0); Mean Corp Hgb Conc. 34.4 g/dL (33.0-37.0); Mean Corpuscular Hgb 33.1 pg (27.0-31.0); Mean Corpuscular Volume 96.1 fL (80.0-94.0); Mean Platelet Volume 8.5 fL (7.4-10.4); Platelet Count 145 10^3/uL (130-400); Red Blood Cell Count 5.14 10^6/uL (4.70-6.10); Red Cell Dist. Width 14.3 % (11.5-14.5)
[2024-08-07 11:57] LABS: ALT (SGPT) 65 U/L (0-50); AST (SGOT) 108 U/L (17-59); Albumin 4.4 g/dl (3.5-5.0); Alkaline Phosphatase 129 U/L (38-126); Blood Urea Nitrogen 4 mg/dl (9-20); Calcium 9.6 mg/dl (8.4-10.2); Carbon Dioxide 21 mmol/L (22-30); Chloride 101 mmol/L (98-107); Glucose 157 mg/dl (70-99); Magnesium 1.7 mg/dl (1.6-2.3); Potassium 3.5 mmol/L (3.5-5.1); Sodium 139 mmol/L (135-145); Total Bilirubin 0.8 mg/dl (0.2-1.3); Total Protein 7.5 g/dl (6.3-8.2); eGFR > 60.00
[2024-08-07 21:55] LABS: CEA 6.72 ng/ml
== END ==
LOC: OIDL 10:54
PROVIDERS: ATTENDING PHYSICIAN Internal Medicine Hematology & Oncology; FAMILY PHYSICIAN Family Medicine
DX: C19 Malignant neoplasm of rectosigmoid junction (principal); C64.2 Malignant neoplasm of left kidney, except renal pelvis; C78.7 Secondary malignant neoplasm of liver and intrahepatic bile duct; D50.9 Iron deficiency anemia, unspecified; Z93.2 Ileostomy status
CPT/HCPCS: 36415; 80053; 82378; 83735; 85025

== ENCOUNTER → 2024-08-21 11:03 | Outpatient (REF) | payer OTHER, SELFPAY ==
[2024-08-21 11:38] LABS: % Basophils 0.5 % (0-2); % Eosinophils 1.4 % (0-6); % Immature Granulocytes 0.2 % (0-0.5); % Lymphocytes 18.1 % (20.5-51.1); % Neutrophils 67.8 % (42.2-75.2); Absolute Eosinophils 0.1 10^3/uL (0-0.7); Absolute Lymphocytes 1.2 10^3/uL (1.2-3.4); Absolute Monocytes 0.8 10^3/uL (0.1-0.6); Absolute Neutrophils 4.5 10^3/uL (1.4-6.5); Hematocrit 46.4 % (39.0-52.0); Hemoglobin 15.9 g/dL (13.0-18.0); Mean Corp Hgb Conc. 34.3 g/dL (33.0-37.0); Mean Corpuscular Hgb 33.5 pg (27.0-31.0); Mean Corpuscular Volume 97.7 fL (80.0-94.0); Mean Platelet Volume 8.5 fL (7.4-10.4); Platelet Count 137 10^3/uL (130-400); Red Blood Cell Count 4.75 10^6/uL (4.70-6.10); White Blood Cell Count 6.6 10^3/uL (4.8-10.8)
[2024-08-21 13:47] LABS: ALT (SGPT) 50 U/L (0-50); AST (SGOT) 78 U/L (17-59); Albumin 4.4 g/dl (3.5-5.0); Alkaline Phosphatase 131 U/L (38-126); Blood Urea Nitrogen 4 mg/dl (9-20); Calcium 9.2 mg/dl (8.4-10.2); Carbon Dioxide 21 mmol/L (22-30); Chloride 98 mmol/L (98-107); Glucose 161 mg/dl (70-99); Potassium 3.3 mmol/L (3.5-5.1); Sodium 138 mmol/L (135-145); Total Bilirubin 0.6 mg/dl (0.2-1.3); eGFR > 60.00
[2024-08-21 14:33] LABS: Total Protein 7.4 g/dl (6.3-8.2)
== END ==
LOC: OIDL 11:03
PROVIDERS: ATTENDING PHYSICIAN Internal Medicine Hematology & Oncology; FAMILY PHYSICIAN Family Medicine
DX: C19 Malignant neoplasm of rectosigmoid junction (principal); C64.2 Malignant neoplasm of left kidney, except renal pelvis; C78.7 Secondary malignant neoplasm of liver and intrahepatic bile duct; D50.9 Iron deficiency anemia, unspecified; Z93.2 Ileostomy status
CPT/HCPCS: 36415; 80053; 85025

== ENCOUNTER → 2024-09-04 14:58 | Outpatient (REF) | payer OTHER, SELFPAY ==
[2024-09-04 15:15] LABS: % Basophils 0.2 % (0-2); % Eosinophils 0.9 % (0-6); % Immature Granulocytes 0.1 % (0-0.5); % Lymphocytes 19.2 % (20.5-51.1); % Monocytes 9.9 % (1.7-9.3); % Neutrophils 69.7 % (42.2-75.2); Absolute Eosinophils 0.1 10^3/uL (0-0.7); Absolute Lymphocytes 1.7 10^3/uL (1.2-3.4); Absolute Monocytes 0.9 10^3/uL (0.1-0.6); Absolute Neutrophils 6.1 10^3/uL (1.4-6.5); Hematocrit 44.9 % (39.0-52.0); Hemoglobin 15.3 g/dL (13.0-18.0); Mean Corp Hgb Conc. 34.1 g/dL (33.0-37.0); Mean Corpuscular Hgb 33.3 pg (27.0-31.0); Mean Corpuscular Volume 97.8 fL (80.0-94.0); Mean Platelet Volume 8.8 fL (7.4-10.4); Platelet Count 128 10^3/uL (130-400); Red Blood Cell Count 4.59 10^6/uL (4.70-6.10); Red Cell Dist. Width 14.3 % (11.5-14.5); White Blood Cell Count 8.8 10^3/uL (4.8-10.8)
[2024-09-04 16:14] LABS: Magnesium 1.8 mg/dl (1.6-2.3)
[2024-09-04 16:16] LABS: ALT (SGPT) 41 U/L (0-50); AST (SGOT) 69 U/L (17-59); Albumin 4.1 g/dl (3.5-5.0); Alkaline Phosphatase 154 U/L (38-126); Blood Urea Nitrogen 3 mg/dl (9-20); Calcium 8.9 mg/dl (8.4-10.2); Carbon Dioxide 23 mmol/L (22-30); Chloride 96 mmol/L (98-107); Glucose 154 mg/dl (70-99); Potassium 3.5 mmol/L (3.5-5.1); Sodium 135 mmol/L (135-145); Total Bilirubin 0.9 mg/dl (0.2-1.3); eGFR > 60.00
== END ==
LOC: OIDL 14:58
PROVIDERS: ATTENDING PHYSICIAN Internal Medicine Hematology & Oncology; FAMILY PHYSICIAN Family Medicine
DX: C19 Malignant neoplasm of rectosigmoid junction (principal); C64.2 Malignant neoplasm of left kidney, except renal pelvis; C78.7 Secondary malignant neoplasm of liver and intrahepatic bile duct; D50.9 Iron deficiency anemia, unspecified; Z93.2 Ileostomy status
CPT/HCPCS: 36415; 80053; 83735; 85025

== ENCOUNTER → 2024-09-18 11:12 | Outpatient (REF) | payer OTHER, SELFPAY ==
[2024-09-18 11:45] LABS: % Basophils 0.4 % (0-2); % Eosinophils 0.8 % (0-6); % Immature Granulocytes 0.1 % (0-0.5); % Monocytes 10.6 % (1.7-9.3); % Neutrophils 74.1 % (42.2-75.2); Absolute Eosinophils 0.1 10^3/uL (0-0.7); Absolute Monocytes 0.8 10^3/uL (0.1-0.6); Absolute Neutrophils 5.5 10^3/uL (1.4-6.5); Hematocrit 44.3 % (39.0-52.0); Hemoglobin 14.9 g/dL (13.0-18.0); Mean Corp Hgb Conc. 33.6 g/dL (33.0-37.0); Mean Corpuscular Hgb 33.3 pg (27.0-31.0); Mean Corpuscular Volume 99.1 fL (80.0-94.0); Mean Platelet Volume 8.4 fL (7.4-10.4); Platelet Count 135 10^3/uL (130-400); Red Blood Cell Count 4.47 10^6/uL (4.70-6.10); Red Cell Dist. Width 14.4 % (11.5-14.5); White Blood Cell Count 7.4 10^3/uL (4.8-10.8)
[2024-09-18 12:55] LABS: ALT (SGPT) 45 U/L (0-50); AST (SGOT) 87 U/L (17-59); Albumin 3.8 g/dl (3.5-5.0); Alkaline Phosphatase 162 U/L (38-126); Blood Urea Nitrogen 5 mg/dl (9-20); Calcium 8.9 mg/dl (8.4-10.2); Carbon Dioxide 26 mmol/L (22-30); Chloride 97 mmol/L (98-107); Glucose 171 mg/dl (70-99); Magnesium 1.8 mg/dl (1.6-2.3); Potassium 3.8 mmol/L (3.5-5.1); Sodium 137 mmol/L (135-145); Total Bilirubin 0.8 mg/dl (0.2-1.3); Total Protein 6.7 g/dl (6.3-8.2); eGFR > 60.00
== END ==
LOC: OIDL 11:12
PROVIDERS: ATTENDING PHYSICIAN Internal Medicine Hematology & Oncology; FAMILY PHYSICIAN Family Medicine
DX: C19 Malignant neoplasm of rectosigmoid junction (principal); C64.2 Malignant neoplasm of left kidney, except renal pelvis; C78.7 Secondary malignant neoplasm of liver and intrahepatic bile duct; D50.9 Iron deficiency anemia, unspecified; Z93.2 Ileostomy status
CPT/HCPCS: 80053; 83735; 85025

== ENCOUNTER → 2024-10-03 10:53 | Outpatient (REF) | payer OTHER, SELFPAY ==
[2024-10-03 11:31] LABS: % Basophils 0.4 % (0-2); % Eosinophils 0.7 % (0-6); % Immature Granulocytes 0.1 % (0-0.5); % Lymphocytes 11.1 % (20.5-51.1); % Monocytes 9.1 % (1.7-9.3); % Neutrophils 78.6 % (42.2-75.2); Absolute Eosinophils 0.1 10^3/uL (0-0.7); Absolute Lymphocytes 0.9 10^3/uL (1.2-3.4); Absolute Monocytes 0.7 10^3/uL (0.1-0.6); Absolute Neutrophils 6.3 10^3/uL (1.4-6.5); Hematocrit 44.1 % (39.0-52.0); Mean Corpuscular Hgb 33.8 pg (27.0-31.0); Mean Corpuscular Volume 99.3 fL (80.0-94.0); Mean Platelet Volume 8.8 fL (7.4-10.4); Platelet Count 123 10^3/uL (130-400); Red Blood Cell Count 4.44 10^6/uL (4.70-6.10); Red Cell Dist. Width 14.6 % (11.5-14.5)
[2024-10-03 13:20] LABS: ALT (SGPT) 43 U/L (0-50); AST (SGOT) 92 U/L (17-59); Alkaline Phosphatase 214 U/L (38-126); Blood Urea Nitrogen < 2 mg/dl (9-20); Carbon Dioxide 25 mmol/L (22-30); Chloride 99 mmol/L (98-107); Glucose 183 mg/dl (70-99); Magnesium 1.8 mg/dl (1.6-2.3); Potassium 3.7 mmol/L (3.5-5.1); Sodium 138 mmol/L (135-145); Total Bilirubin 0.7 mg/dl (0.2-1.3); Total Protein 6.9 g/dl (6.3-8.2); eGFR > 60.00
== END ==
LOC: OIDL 10:53
PROVIDERS: ATTENDING PHYSICIAN Internal Medicine Hematology & Oncology; FAMILY PHYSICIAN Family Medicine
DX: C19 Malignant neoplasm of rectosigmoid junction (principal)
CPT/HCPCS: 36415; 80053; 83735; 85025

== ENCOUNTER → 2024-10-16 10:50 | Outpatient (REF) | payer OTHER, SELFPAY ==
[2024-10-16 11:14] LABS: % Basophils 0.3 % (0-2); % Eosinophils 0.7 % (0-6); % Immature Granulocytes 0.1 % (0-0.5); % Lymphocytes 11.6 % (20.5-51.1); % Monocytes 9.9 % (1.7-9.3); % Neutrophils 77.4 % (42.2-75.2); Absolute Eosinophils 0.1 10^3/uL (0-0.7); Absolute Lymphocytes 0.8 10^3/uL (1.2-3.4); Absolute Monocytes 0.7 10^3/uL (0.1-0.6); Absolute Neutrophils 5.6 10^3/uL (1.4-6.5); Hematocrit 41.4 % (39.0-52.0); Hemoglobin 14.3 g/dL (13.0-18.0); Mean Corp Hgb Conc. 34.5 g/dL (33.0-37.0); Mean Corpuscular Hgb 34.4 pg (27.0-31.0); Mean Corpuscular Volume 99.5 fL (80.0-94.0); Mean Platelet Volume 8.7 fL (7.4-10.4); Platelet Count 122 10^3/uL (130-400); Red Blood Cell Count 4.16 10^6/uL (4.70-6.10); Red Cell Dist. Width 14.7 % (11.5-14.5); White Blood Cell Count 7.3 10^3/uL (4.8-10.8)
[2024-10-16 12:36] LABS: ALT (SGPT) 43 U/L (0-50); AST (SGOT) 87 U/L (17-59); Albumin 3.8 g/dl (3.5-5.0); Alkaline Phosphatase 202 U/L (38-126); Blood Urea Nitrogen 2 mg/dl (9-20); Calcium 9.1 mg/dl (8.4-10.2); Carbon Dioxide 24 mmol/L (22-30); Chloride 100 mmol/L (98-107); Glucose 155 mg/dl (70-99); Magnesium 1.7 mg/dl (1.6-2.3); Potassium 3.6 mmol/L (3.5-5.1); Sodium 136 mmol/L (135-145); Total Bilirubin 0.6 mg/dl (0.2-1.3); Total Protein 6.7 g/dl (6.3-8.2); eGFR > 60.00
[2024-10-16 13:01] LABS: CEA 7.24 ng/ml
== END ==
LOC: OIDL 10:50
PROVIDERS: ATTENDING PHYSICIAN Internal Medicine Hematology & Oncology; FAMILY PHYSICIAN Family Medicine
DX: C19 Malignant neoplasm of rectosigmoid junction (principal); C64.2 Malignant neoplasm of left kidney, except renal pelvis; C78.7 Secondary malignant neoplasm of liver and intrahepatic bile duct; D50.9 Iron deficiency anemia, unspecified; Z93.2 Ileostomy status
CPT/HCPCS: 36415; 80053; 82378; 83735; 85025

== ENCOUNTER → 2024-11-06 11:02 | Outpatient (REF) | payer OTHER, SELFPAY ==
[2024-11-06 11:51] LABS: % Basophils 0.9 % (0-2); % Eosinophils 0.4 % (0-6); % Immature Granulocytes 0.4 % (0-0.5); % Lymphocytes 15.3 % (20.5-51.1); % Monocytes 12.6 % (1.7-9.3); % Neutrophils 70.4 % (42.2-75.2); Absolute Basophils 0.1 10^3/uL (0-0.2); Absolute Lymphocytes 1.1 10^3/uL (1.2-3.4); Absolute Monocytes 0.9 10^3/uL (0.1-0.6); Absolute Neutrophils 5.3 10^3/uL (1.4-6.5); Hematocrit 44.5 % (39.0-52.0); Hemoglobin 15.3 g/dL (13.0-18.0); Mean Corp Hgb Conc. 34.4 g/dL (33.0-37.0); Mean Corpuscular Hgb 34.5 pg (27.0-31.0); Mean Corpuscular Volume 100.5 fL (80.0-94.0); Mean Platelet Volume 9.3 fL (7.4-10.4); Nucleated Red Blood Cells % 0 % (-); Platelet Count 174 10^3/uL (130-400); Red Blood Cell Count 4.43 10^6/uL (4.70-6.10); White Blood Cell Count 7.5 10^3/uL (4.8-10.8)
[2024-11-06 12:16] LABS: ALT (SGPT) 33 U/L (0-50); AST (SGOT) 80 U/L (17-59); Albumin 3.8 g/dl (3.5-5.0); Alkaline Phosphatase 212 U/L (38-126); Blood Urea Nitrogen 5 mg/dl (9-20); Calcium 9.3 mg/dl (8.4-10.2); Carbon Dioxide 25 mmol/L (22-30); Chloride 98 mmol/L (98-107); Glucose 203 mg/dl (70-99); Magnesium 1.8 mg/dl (1.6-2.3); Potassium 3.9 mmol/L (3.5-5.1); Sodium 135 mmol/L (135-145); Total Bilirubin 0.9 mg/dl (0.2-1.3); Total Protein 6.9 g/dl (6.3-8.2); eGFR > 60.00
== END ==
LOC: OIDL 11:02
PROVIDERS: ATTENDING PHYSICIAN Internal Medicine Hematology & Oncology; FAMILY PHYSICIAN Family Medicine
DX: C19 Malignant neoplasm of rectosigmoid junction (principal); C64.2 Malignant neoplasm of left kidney, except renal pelvis; C78.7 Secondary malignant neoplasm of liver and intrahepatic bile duct; D50.9 Iron deficiency anemia, unspecified; Z93.2 Ileostomy status
CPT/HCPCS: 36415; 80053; 83735; 85025

== ENCOUNTER → 2024-11-20 09:39 | Outpatient (REF) | payer OTHER, SELFPAY ==
[2024-11-20 10:07] LABS: Hematocrit 43.6 % (39.0-52.0); Hemoglobin 14.6 g/dL (13.0-18.0); Mean Corp Hgb Conc. 33.5 g/dL (33.0-37.0); Mean Corpuscular Volume 102.1 fL (80.0-94.0); Platelet Count 146 10^3/uL (130-400); Red Cell Dist. Width 14.1 % (11.5-14.5)
[2024-11-20 11:32] LABS: ALT (SGPT) 32 U/L (0-50); AST (SGOT) 81 U/L (17-59); Albumin 3.4 g/dl (3.5-5.0); Alkaline Phosphatase 188 U/L (38-126); Blood Urea Nitrogen 4 mg/dl (9-20); Calcium 8.7 mg/dl (8.4-10.2); Carbon Dioxide 27 mmol/L (22-30); Chloride 98 mmol/L (98-107); Glucose 153 mg/dl (70-99); Magnesium 1.7 mg/dl (1.6-2.3); Potassium 3.8 mmol/L (3.5-5.1); Sodium 133 mmol/L (135-145); Total Protein 6.4 g/dl (6.3-8.2); eGFR > 60.00
== END ==
LOC: OIDL 09:39
PROVIDERS: ATTENDING PHYSICIAN Internal Medicine Hematology & Oncology; FAMILY PHYSICIAN Family Medicine
DX: C19 Malignant neoplasm of rectosigmoid junction (principal); C64.2 Malignant neoplasm of left kidney, except renal pelvis; C78.7 Secondary malignant neoplasm of liver and intrahepatic bile duct; D50.9 Iron deficiency anemia, unspecified; Z93.2 Ileostomy status
CPT/HCPCS: 36415; 80053; 83735; 85025

== ENCOUNTER → 2024-12-04 09:58 | Outpatient (REF) | payer OTHER, SELFPAY ==
[2024-12-04 10:47] LABS: Hematocrit 44.0 % (39.0-52.0); Hemoglobin 15.1 g/dL (13.0-18.0); Mean Corp Hgb Conc. 34.3 g/dL (33.0-37.0); Mean Corpuscular Volume 100.0 fL (80.0-94.0); Platelet Count 157 10^3/uL (130-400); Red Cell Dist. Width 13.5 % (11.5-14.5)
[2024-12-04 11:41] LABS: ALT (SGPT) 34 U/L (0-50); AST (SGOT) 83 U/L (17-59); Albumin 3.5 g/dl (3.5-5.0); Alkaline Phosphatase 177 U/L (38-126); Blood Urea Nitrogen 3 mg/dl (9-20); Calcium 8.9 mg/dl (8.4-10.2); Carbon Dioxide 31 mmol/L (22-30); Chloride 90 mmol/L (98-107); Glucose 189 mg/dl (70-99); Magnesium 1.6 mg/dl (1.6-2.3); Potassium 2.9 mmol/L (3.5-5.1); Sodium 132 mmol/L (135-145); Total Protein 6.5 g/dl (6.3-8.2); eGFR > 60.00
== END ==
LOC: OIDL 09:58
PROVIDERS: ATTENDING PHYSICIAN Internal Medicine Hematology & Oncology; FAMILY PHYSICIAN Family Medicine
DX: C19 Malignant neoplasm of rectosigmoid junction (principal); C64.2 Malignant neoplasm of left kidney, except renal pelvis; C78.7 Secondary malignant neoplasm of liver and intrahepatic bile duct; D50.9 Iron deficiency anemia, unspecified; Z93.2 Ileostomy status
CPT/HCPCS: 36415; 80053; 83735; 85025

== ENCOUNTER → 2024-12-18 09:20 | Outpatient (REF) | payer OTHER, SELFPAY ==
[2024-12-18 10:13] LABS: Hematocrit 46.3 % (39.0-52.0); Hemoglobin 15.6 g/dL (13.0-18.0); Mean Corp Hgb Conc. 33.7 g/dL (33.0-37.0); Mean Corpuscular Volume 99.8 fL (80.0-94.0); Platelet Count 139 10^3/uL (130-400); Red Cell Dist. Width 13.8 % (11.5-14.5)
[2024-12-18 12:05] LABS: ALT (SGPT) 35 U/L (0-50); AST (SGOT) 84 U/L (17-59); Albumin 3.4 g/dl (3.5-5.0); Alkaline Phosphatase 222 U/L (38-126); Blood Urea Nitrogen 5 mg/dl (9-20); Calcium 8.5 mg/dl (8.4-10.2); Carbon Dioxide 32 mmol/L (22-30); Chloride 95 mmol/L (98-107); Glucose 133 mg/dl (70-99); Magnesium 1.9 mg/dl (1.6-2.3); Potassium 3.9 mmol/L (3.5-5.1); Sodium 134 mmol/L (135-145); Total Protein 6.6 g/dl (6.3-8.2); eGFR > 60.00
== END ==
LOC: OIDL 09:20
PROVIDERS: ATTENDING PHYSICIAN Internal Medicine Hematology & Oncology; FAMILY PHYSICIAN Family Medicine
DX: C19 Malignant neoplasm of rectosigmoid junction (principal); C64.2 Malignant neoplasm of left kidney, except renal pelvis; C78.7 Secondary malignant neoplasm of liver and intrahepatic bile duct; D50.9 Iron deficiency anemia, unspecified; Z93.2 Ileostomy status
CPT/HCPCS: 36415; 80053; 83735; 85025

== ENCOUNTER → 2025-01-01 10:56 | Outpatient (REF) | payer OTHER, SELFPAY ==
[2025-01-01 12:01] LABS: Hematocrit 43.9 % (39.0-52.0); Hemoglobin 14.9 g/dL (13.0-18.0); Mean Corp Hgb Conc. 33.9 g/dL (33.0-37.0); Mean Corpuscular Volume 97.3 fL (80.0-94.0); Nucleated Red Blood Cells % 0 % (-); Platelet Count 161 10^3/uL (130-400); Red Cell Dist. Width 14.3 % (11.5-14.5)
[2025-01-01 12:26] LABS: ALT (SGPT) 33 U/L (0-50); AST (SGOT) 88 U/L (17-59); Albumin 3.4 g/dl (3.5-5.0); Alkaline Phosphatase 229 U/L (38-126); Blood Urea Nitrogen 4 mg/dl (9-20); Calcium 8.7 mg/dl (8.4-10.2); Carbon Dioxide 26 mmol/L (22-30); Chloride 94 mmol/L (98-107); Glucose 190 mg/dl (70-99); Magnesium 1.6 mg/dl (1.6-2.3); Potassium 3.3 mmol/L (3.5-5.1); Sodium 131 mmol/L (135-145); Total Protein 6.5 g/dl (6.3-8.2); eGFR > 60.00
== END ==
LOC: REG 10:56
PROVIDERS: ATTENDING PHYSICIAN Internal Medicine Hematology & Oncology
DX: C19 Malignant neoplasm of rectosigmoid junction (principal); C64.2 Malignant neoplasm of left kidney, except renal pelvis; C78.7 Secondary malignant neoplasm of liver and intrahepatic bile duct; D50.9 Iron deficiency anemia, unspecified; Z93.2 Ileostomy status
CPT/HCPCS: 36415; 80053; 83735; 85025

== ENCOUNTER → 2025-01-09 11:40 | Outpatient (REF) | payer OTHER, SELFPAY | LOC: RAD 11:40 | PROVIDERS: ATTENDING PHYSICIAN Internal Medicine Hematology & Oncology | DX: C19 Malignant neoplasm of rectosigmoid junction (principal); C64.9 Malignant neoplasm of unspecified kidney, except renal pelvis; C78.7 Secondary malignant neoplasm of liver and intrahepatic bile duct; D50.9 Iron deficiency anemia, unspecified; Z93.2 Ileostomy status | CPT/HCPCS: 71260; 74177; Q9967 ==

== ENCOUNTER → 2025-01-15 10:50 | Outpatient (REF) | payer OTHER, SELFPAY ==
[2025-01-15 11:18] LABS: Hematocrit 43.8 % (39.0-52.0); Hemoglobin 15.1 g/dL (13.0-18.0); Mean Corp Hgb Conc. 34.5 g/dL (33.0-37.0); Mean Corpuscular Volume 98.4 fL (80.0-94.0); Platelet Count 152 10^3/uL (130-400); Red Cell Dist. Width 14.7 % (11.5-14.5)
[2025-01-15 12:04] LABS: ALT (SGPT) 33 U/L (0-50); AST (SGOT) 93 U/L (17-59); Albumin 3.5 g/dl (3.5-5.0); Alkaline Phosphatase 222 U/L (38-126); Blood Urea Nitrogen 5 mg/dl (9-20); Calcium 8.5 mg/dl (8.4-10.2); Carbon Dioxide 24 mmol/L (22-30); Chloride 93 mmol/L (98-107); Glucose 212 mg/dl (70-99); Magnesium 1.6 mg/dl (1.6-2.3); Potassium 3.2 mmol/L (3.5-5.1); Sodium 131 mmol/L (135-145); Total Protein 6.8 g/dl (6.3-8.2); eGFR > 60.00
[2025-01-15 12:34] LABS: CEA 8.43 ng/ml
== END ==
LOC: OIDL 10:50
PROVIDERS: ATTENDING PHYSICIAN Internal Medicine Hematology & Oncology; FAMILY PHYSICIAN Family Medicine
DX: C19 Malignant neoplasm of rectosigmoid junction (principal); C64.2 Malignant neoplasm of left kidney, except renal pelvis; C78.7 Secondary malignant neoplasm of liver and intrahepatic bile duct; D50.9 Iron deficiency anemia, unspecified; Z93.2 Ileostomy status
CPT/HCPCS: 36415; 80053; 82378; 83735; 85025

== ENCOUNTER → 2025-01-29 10:35 | Outpatient (REF) | payer OTHER, SELFPAY ==
[2025-01-29 10:50] LABS: Hematocrit 44.2 % (39.0-52.0); Hemoglobin 15.0 g/dL (13.0-18.0); Mean Corp Hgb Conc. 33.9 g/dL (33.0-37.0); Mean Corpuscular Volume 98.4 fL (80.0-94.0); Platelet Count 160 10^3/uL (130-400); Red Cell Dist. Width 15.2 % (11.5-14.5)
[2025-01-29 11:41] LABS: ALT (SGPT) 31 U/L (0-50); AST (SGOT) 83 U/L (17-59); Albumin 3.3 g/dl (3.5-5.0); Alkaline Phosphatase 245 U/L (38-126); Blood Urea Nitrogen 4 mg/dl (9-20); Calcium 8.5 mg/dl (8.4-10.2); Carbon Dioxide 26 mmol/L (22-30); Chloride 93 mmol/L (98-107); Glucose 222 mg/dl (70-99); Magnesium 1.6 mg/dl (1.6-2.3); Potassium 3.3 mmol/L (3.5-5.1); Sodium 129 mmol/L (135-145); Total Protein 6.5 g/dl (6.3-8.2); eGFR > 60.00
== END ==
LOC: OIDL 10:35
PROVIDERS: ATTENDING PHYSICIAN Internal Medicine Hematology & Oncology; FAMILY PHYSICIAN Family Medicine
DX: C19 Malignant neoplasm of rectosigmoid junction (principal); C64.2 Malignant neoplasm of left kidney, except renal pelvis; C78.7 Secondary malignant neoplasm of liver and intrahepatic bile duct; D50.9 Iron deficiency anemia, unspecified; Z93.2 Ileostomy status
CPT/HCPCS: 80053; 83735; 85025

== ENCOUNTER → 2025-02-12 10:49 | Outpatient (REF) | payer OTHER, SELFPAY ==
[2025-02-12 11:11] LABS: Hematocrit 45.1 % (39.0-52.0); Hemoglobin 15.0 g/dL (13.0-18.0); Mean Corp Hgb Conc. 33.3 g/dL (33.0-37.0); Mean Corpuscular Volume 98.7 fL (80.0-94.0); Platelet Count 170 10^3/uL (130-400); Red Cell Dist. Width 15.6 % (11.5-14.5)
[2025-02-12 11:44] LABS: ALT (SGPT) 35 U/L (0-50); AST (SGOT) 106 U/L (17-59); Albumin 3.4 g/dl (3.5-5.0); Alkaline Phosphatase 196 U/L (38-126); Blood Urea Nitrogen 6 mg/dl (9-20); Calcium 8.4 mg/dl (8.4-10.2); Carbon Dioxide 27 mmol/L (22-30); Chloride 96 mmol/L (98-107); Glucose 174 mg/dl (70-99); Magnesium 1.7 mg/dl (1.6-2.3); Potassium 3.4 mmol/L (3.5-5.1); Sodium 132 mmol/L (135-145); Total Protein 6.5 g/dl (6.3-8.2); eGFR > 60.00
== END ==
LOC: OIDL 10:49
PROVIDERS: ATTENDING PHYSICIAN Internal Medicine Hematology & Oncology; FAMILY PHYSICIAN Family Medicine
DX: C19 Malignant neoplasm of rectosigmoid junction (principal); C64.2 Malignant neoplasm of left kidney, except renal pelvis; C78.7 Secondary malignant neoplasm of liver and intrahepatic bile duct; D50.9 Iron deficiency anemia, unspecified; Z93.2 Ileostomy status
CPT/HCPCS: 36415; 80053; 83735; 85025

== ENCOUNTER → 2025-02-26 11:39 | Outpatient (REF) | payer OTHER, SELFPAY ==
[2025-02-26 11:51] LABS: Hematocrit 47.2 % (39.0-52.0); Hemoglobin 15.9 g/dL (13.0-18.0); Mean Corp Hgb Conc. 33.7 g/dL (33.0-37.0); Mean Corpuscular Volume 96.3 fL (80.0-94.0); Platelet Count 182 10^3/uL (130-400); Red Cell Dist. Width 15.2 % (11.5-14.5)
[2025-02-26 13:12] LABS: ALT (SGPT) 27 U/L (0-50); AST (SGOT) 62 U/L (17-59); Albumin 3.4 g/dl (3.5-5.0); Alkaline Phosphatase 218 U/L (38-126); Blood Urea Nitrogen 4 mg/dl (9-20); Calcium 8.5 mg/dl (8.4-10.2); Carbon Dioxide 30 mmol/L (22-30); Chloride 90 mmol/L (98-107); Glucose 197 mg/dl (70-99); Magnesium 1.6 mg/dl (1.6-2.3); Potassium 3.0 mmol/L (3.5-5.1); Sodium 128 mmol/L (135-145); Total Protein 6.7 g/dl (6.3-8.2); eGFR > 60.00
[2025-02-26 19:49] LABS: CEA 7.94 ng/ml
== END ==
LOC: OIDL 11:39
PROVIDERS: ATTENDING PHYSICIAN Internal Medicine Hematology & Oncology
DX: C19 Malignant neoplasm of rectosigmoid junction (principal); C64.2 Malignant neoplasm of left kidney, except renal pelvis; C78.7 Secondary malignant neoplasm of liver and intrahepatic bile duct; D50.9 Iron deficiency anemia, unspecified; Z93.2 Ileostomy status
CPT/HCPCS: 36415; 80053; 82378; 83735; 85025

== ENCOUNTER → 2025-03-12 10:47 | Outpatient (REF) | payer OTHER, SELFPAY ==
[2025-03-12 10:58] LABS: Hematocrit 48.3 % (39.0-52.0); Hemoglobin 16.7 g/dL (13.0-18.0); Mean Corp Hgb Conc. 34.6 g/dL (33.0-37.0); Mean Corpuscular Volume 94.7 fL (80.0-94.0); Platelet Count 153 10^3/uL (130-400); Red Cell Dist. Width 15.5 % (11.5-14.5)
[2025-03-12 12:50] LABS: ALT (SGPT) 31 U/L (0-50); AST (SGOT) 63 U/L (17-59); Albumin 3.8 g/dl (3.5-5.0); Alkaline Phosphatase 230 U/L (38-126); Blood Urea Nitrogen 10 mg/dl (9-20); Calcium 8.4 mg/dl (8.4-10.2); Carbon Dioxide 37 mmol/L (22-30); Chloride 79 mmol/L (98-107); Glucose 183 mg/dl (70-99); Magnesium 1.6 mg/dl (1.6-2.3); Potassium 2.5 mmol/L (3.5-5.1); Sodium 126 mmol/L (135-145); Total Protein 7.2 g/dl (6.3-8.2); eGFR > 60.00
== END ==
LOC: OIDL 10:47
PROVIDERS: ATTENDING PHYSICIAN Internal Medicine Hematology & Oncology; FAMILY PHYSICIAN Family Medicine
DX: C19 Malignant neoplasm of rectosigmoid junction (principal); C64.2 Malignant neoplasm of left kidney, except renal pelvis; C78.7 Secondary malignant neoplasm of liver and intrahepatic bile duct; D50.9 Iron deficiency anemia, unspecified; Z93.2 Ileostomy status
CPT/HCPCS: 36415; 80053; 83735; 85025

== ENCOUNTER → 2025-03-13 15:27 | Outpatient (REF) | payer OTHER, SELFPAY ==
[2025-03-13 16:16] LABS: ALT (SGPT) 31 U/L (0-50); AST (SGOT) 66 U/L (17-59); Albumin 3.6 g/dl (3.5-5.0); Alkaline Phosphatase 192 U/L (38-126); Blood Urea Nitrogen 10 mg/dl (9-20); Calcium 8.2 mg/dl (8.4-10.2); Carbon Dioxide 35 mmol/L (22-30); Chloride 79 mmol/L (98-107); Glucose 142 mg/dl (70-99); Potassium 3.0 mmol/L (3.5-5.1); Sodium 125 mmol/L (135-145); Total Protein 6.8 g/dl (6.3-8.2); eGFR > 60.00
== END ==
LOC: REG 15:27
PROVIDERS: ATTENDING PHYSICIAN Internal Medicine Hematology & Oncology; FAMILY PHYSICIAN Family Medicine
DX: C19 Malignant neoplasm of rectosigmoid junction (principal); C64.2 Malignant neoplasm of left kidney, except renal pelvis; C78.7 Secondary malignant neoplasm of liver and intrahepatic bile duct; D50.9 Iron deficiency anemia, unspecified; Z93.2 Ileostomy status
CPT/HCPCS: 36415; 80053

== ENCOUNTER → 2025-03-14 07:35 | Outpatient (REF) | payer OTHER, SELFPAY ==
[2025-03-14 10:37] LABS: Blood Urea Nitrogen 9 mg/dl (9-20); Calcium 8.6 mg/dl (8.4-10.2); Chloride 81 mmol/L (98-107); Glucose 167 mg/dl (70-99); Potassium 3.6 mmol/L (3.5-5.1); Sodium 129 mmol/L (135-145); eGFR > 60.00
[2025-03-14 10:55] LABS: Carbon Dioxide 40 mmol/L (22-30)
== END ==
LOC: REG 07:35
PROVIDERS: ATTENDING PHYSICIAN Internal Medicine; FAMILY PHYSICIAN Family Medicine
DX: E87.6 Hypokalemia (principal); R60.0 Localized edema; E87.1 Hypo-osmolality and hyponatremia; I10 Essential (primary) hypertension; I89.0 Lymphedema, not elsewhere classified
CPT/HCPCS: 36415; 80048

== ENCOUNTER → 2025-03-15 11:43 | Outpatient (REF) | payer OTHER, SELFPAY ==
[2025-03-15 14:05] LABS: Blood Urea Nitrogen 10 mg/dl (9-20); Calcium 9.0 mg/dl (8.4-10.2); Carbon Dioxide 35 mmol/L (22-30); Chloride 84 mmol/L (98-107); Glucose 165 mg/dl (70-99); Potassium 3.7 mmol/L (3.5-5.1); Sodium 126 mmol/L (135-145); eGFR > 60.00
== END ==
LOC: REG 11:43
PROVIDERS: ATTENDING PHYSICIAN Internal Medicine; FAMILY PHYSICIAN Family Medicine
DX: I89.0 Lymphedema, not elsewhere classified (principal); R60.0 Localized edema; I10 Essential (primary) hypertension
CPT/HCPCS: 36415; 80048

== ENCOUNTER → 2025-03-23 15:41 | Outpatient (REF) | payer OTHER, SELFPAY | LOC: RCS 15:41 | PROVIDERS: ATTENDING PHYSICIAN Internal Medicine; FAMILY PHYSICIAN Family Medicine | DX: I89.0 Lymphedema, not elsewhere classified (principal); R60.0 Localized edema; C18.9 Malignant neoplasm of colon, unspecified; I44.4 Left anterior fascicular block; I10 Essential (primary) hypertension | CPT/HCPCS: 93306 ==

== ENCOUNTER → 2025-03-26 10:51 | Outpatient (REF) | payer OTHER, SELFPAY ==
[2025-03-26 11:05] LABS: Hematocrit 44.7 % (39.0-52.0); Hemoglobin 15.0 g/dL (13.0-18.0); Mean Corp Hgb Conc. 33.6 g/dL (33.0-37.0); Mean Corpuscular Volume 96.3 fL (80.0-94.0); Platelet Count 163 10^3/uL (130-400); Red Cell Dist. Width 16.0 % (11.5-14.5)
[2025-03-26 12:04] LABS: ALT (SGPT) 32 U/L (0-50); AST (SGOT) 55 U/L (17-59); Albumin 3.3 g/dl (3.5-5.0); Alkaline Phosphatase 202 U/L (38-126); Blood Urea Nitrogen 7 mg/dl (9-20); Calcium 8.7 mg/dl (8.4-10.2); Carbon Dioxide 27 mmol/L (22-30); Chloride 98 mmol/L (98-107); Glucose 170 mg/dl (70-99); Magnesium 1.8 mg/dl (1.6-2.3); Potassium 4.0 mmol/L (3.5-5.1); Sodium 130 mmol/L (135-145); Total Protein 6.6 g/dl (6.3-8.2); eGFR > 60.00
== END ==
LOC: OIDL 10:51
PROVIDERS: ATTENDING PHYSICIAN Internal Medicine Hematology & Oncology; FAMILY PHYSICIAN Family Medicine
DX: C19 Malignant neoplasm of rectosigmoid junction (principal); C64.2 Malignant neoplasm of left kidney, except renal pelvis; C78.7 Secondary malignant neoplasm of liver and intrahepatic bile duct; D50.9 Iron deficiency anemia, unspecified; Z93.2 Ileostomy status
CPT/HCPCS: 36415; 80053; 83735; 85025

== ENCOUNTER → 2025-04-06 15:13 | Outpatient (REF) | payer OTHER, SELFPAY | LOC: RAD 15:13 | PROVIDERS: ATTENDING PHYSICIAN Internal Medicine Hematology & Oncology; FAMILY PHYSICIAN Family Medicine | DX: C19 Malignant neoplasm of rectosigmoid junction (principal); C64.2 Malignant neoplasm of left kidney, except renal pelvis; C78.7 Secondary malignant neoplasm of liver and intrahepatic bile duct; D50.9 Iron deficiency anemia, unspecified; Z93.2 Ileostomy status | CPT/HCPCS: 71260; 74177; Q9967 ==

== ENCOUNTER → 2025-04-09 10:53 | Outpatient (REF) | payer OTHER, SELFPAY ==
[2025-04-09 11:12] LABS: Hematocrit 44.5 % (39.0-52.0); Hemoglobin 14.8 g/dL (13.0-18.0); Mean Corp Hgb Conc. 33.3 g/dL (33.0-37.0); Mean Corpuscular Volume 95.7 fL (80.0-94.0); Platelet Count 151 10^3/uL (130-400); Red Cell Dist. Width 16.9 % (11.5-14.5)
[2025-04-09 11:58] LABS: ALT (SGPT) 26 U/L (0-50); AST (SGOT) 47 U/L (17-59); Albumin 3.2 g/dl (3.5-5.0); Alkaline Phosphatase 202 U/L (38-126); Blood Urea Nitrogen 6 mg/dl (9-20); Calcium 8.3 mg/dl (8.4-10.2); Carbon Dioxide 25 mmol/L (22-30); Chloride 98 mmol/L (98-107); Glucose 212 mg/dl (70-99); Magnesium 1.7 mg/dl (1.6-2.3); Potassium 3.9 mmol/L (3.5-5.1); Sodium 131 mmol/L (135-145); Total Protein 6.2 g/dl (6.3-8.2); eGFR > 60.00
[2025-04-09 20:28] LABS: CEA 10.0 ng/ml
== END ==
LOC: OIDL 10:53
PROVIDERS: ATTENDING PHYSICIAN Internal Medicine Hematology & Oncology; FAMILY PHYSICIAN Family Medicine
DX: C19 Malignant neoplasm of rectosigmoid junction (principal); C64.2 Malignant neoplasm of left kidney, except renal pelvis; C78.7 Secondary malignant neoplasm of liver and intrahepatic bile duct; D50.9 Iron deficiency anemia, unspecified; Z93.2 Ileostomy status
CPT/HCPCS: 36415; 80053; 82378; 83735; 85025